=== PATIENT | male | born 1980 | race Caucasian/White ===

== ENCOUNTER 2016-12-07 18:56 | Emergency (ER) | payer SELFPAY ==
[2016-12-07 19:00] VITALS: BP 143/63; PULSE 97; RESP 20; TEMP 98.9
--- NOTE | 2016-12-07 19:07 | ED ---
General Adult HPI - General Chief complaint: Upper Respiratory Infection Stated complaint: COUGH, COLD SYMPTOMS Time Seen by Provider: 12/07/16 19:01 Source: patient, RN notes reviewed Mode of arrival: ambulatory Limitations: no limitations - History of Present Illness Initial comments: Patient 36-year-old male who presents emergency room today with a chief complaint of cough congestion and increased rhinorrhea and sneezing over the last 3 days. He denies any bodyaches. Denies any recorded temperatures. Denies any chills. Denies any nausea vomiting, diarrhea. Patient denies any other complaints or symptoms currently. Patient denies any shortness of breath, chest pain, back pain, abdominal pain, dysuria or hematuria, constipation, headaches or visual changes, or any other complaints. - Related Data Home Medications Medication Instructions Recorded Confirmed Acetaminophen Tab [Tylenol Tab] 1,000 mg PO Q6HR PRN 12/07/16 12/07/16 Previous Rx's Medication Instructions Recorded Amoxicillin/Potassium Clav 1 each PO Q12HR #20 tab 12/07/16 [Augmentin 875-125 Tablet] Fluticasone Propionate [Flonase 1 - 2 spray EA NOSTRIL DAILY 5 Days 12/07/16 Allergy Relief] Allergies Allergy/AdvReac Type Severity Reaction Status Date / Time No Known Allergies Allergy Verified 12/07/16 19:11 Review of Systems ROS Statement: Those systems with pertinent positive or pertinent negative responses have been documented in the HPI. ROS Other: All systems not noted in ROS Statement are negative. Past Medical History Past Medical History: Hypertension, Mitral Valve Prolapse (MVP) History of Any Multi-Drug Resistant Organisms: None Reported Past Surgical History: Hernia Repair, Orthopedic Surgery Past Psychological History: No Psychological Hx Reported Smoking Status: Current every day smoker Past Alcohol Use History: Occasional Past Drug Use History: None Reported General Exam - General Exam Comments Initial Comments: General: The patient is awake and alert, in no distress, and does not appear acutely ill. Eye: Pupils are equal, round and reactive to light, extra-ocular movements are intact. No nystagmus. There is normal conjunctiva bilaterally. No signs of icterus. Ears, nose, mouth and throat: There are moist mucous membranes and no oral lesions. Clear rhinorrhea. Neck: The neck is supple, there is no tenderness or JVD. Cardiovascular: There is a regular rate and rhythm. No murmur, rub or gallop is appreciated. Respiratory: Lungs are clear to auscultation, respirations are non-labored, breath sounds are equal. No wheezes, stridor, rales, or rhonchi. Musculoskeletal: Normal ROM, no tenderness. Strength 5/5. Sensation intact. Pulses equal bilaterally 2+. Neurological: A&O x 3. CN II-XII intact, There are no obvious motor or sensory deficits. Coordination appears grossly intact. Speech is normal. Skin: Skin is warm and dry and no rashes or lesions are noted. Psychiatric: Cooperative, appropriate mood & affect, normal judgment. Limitations: no limitations Course Vital Signs 12/07/16 18:58 Temperature 98.9 F Pulse Rate 97 Respiratory 20 Rate Blood Pressure 143/63 O2 Sat by Pulse 98 Oximetry Medical Decision Making - Medical Decision Making The patient reexamined at this time shows no signs of distress. Chest x-ray negative. Patient will be treated for sinus infection as it is tender over the maxillary sinuses. Does have increased strange advised could be a viral illness. Patient will be started on Flonase as well as advised to use over-the- counter medications of Claritin, Sudafed. Advised return to emergency room if any symptoms increase worsen or for any other concerns. Disposition Clinical Impression: Acute sinusitis Disposition: HOME SELF-CARE Condition: Good Instructions: Sinusitis (ED) Additional Instructions: Please use medication as discussed. Please follow-up with family doctor in the next 2 days of symptoms have not improved. Please return to emergency room if the symptoms increase or worsen or for any other concerns. Prescriptions: Amoxicillin/Potassium Clav [Augmentin 875-125 Tablet] 1 each PO Q12HR #20 tab Fluticasone Propionate [Flonase Allergy Relief] 1 - 2 spray EA NOSTRIL DAILY 5 Days Time of Disposition: 19:46
--- NOTE | 2016-12-07 19:27 | XR ---
EXAMINATION TYPE: XR chest 2V DATE OF EXAM: 12/07/2016 7:20 PM COMPARISON: 08/10/2015 HISTORY: Cough and congestion TECHNIQUE: Frontal and lateral views of the chest are obtained. FINDINGS: Heart and mediastinum are normal. Lungs are clear. Diaphragm is normal. Bony thorax is int act. IMPRESSION: Normal chest. No change.
== END 2016-12-07 20:18 | disposition home or self-care (01) ==
LOC: EC 18:56
DX: J01.90 Acute sinusitis, unspecified (principal); F17.200 Nicotine dependence, unspecified, uncomplicated
CPT/HCPCS: 71020; 99283

== ENCOUNTER 2017-05-21 14:15 | Emergency (ER) | payer OTHER ==
[2017-05-21 14:37] VITALS: BP 134/96; PULSE 103; RESP 18; TEMP 97.5
--- NOTE | 2017-05-21 15:07 | ED ---
ENT HPI - General Chief complaint: Dental/Oral Stated complaint: Dental Pain Time Seen by Provider: 05/21/17 14:38 Source: patient Mode of arrival: ambulatory Limitations: no limitations - History of Present Illness Initial comments: 36-year-old male patient presents to emergency for evaluation of left lower dental pain with left-sided facial swelling. Patient states that this has been bothering him for the last 3 days however the swelling in his face started today. Patient states he has been calling around to get a dentist appointment but no one has any emergency appointments available for today. Patient states that the pain is becoming unbearable and the swelling is worsening throughout the day. Patient reports multiple broken teeth and cavities, states they've been that way for a while. Patient denies any difficulty swallowing or opening his mouth. Patient denies any recent fever, chills, shortness breath, chest pain, abdominal pain, nausea/vomiting/diarrhea, back pain, numbness, tingling, hematuria, headache, or visual changes, or any other complaints. - Related Data Previous Rx's Medication Instructions Recorded Amoxic-Pot Clav 875-125Mg 1 tab PO Q12HR #20 tablet 05/21/17 [Augmentin 875-125] Hydrocodone/Acetaminophen [[place] 1 tab PO Q6HR PRN #15 tab 05/21/17 5-325] Allergies Allergy/AdvReac Type Severity Reaction Status Date / Time No Known Allergies Allergy Verified 05/21/17 15:04 Review of Systems ROS Statement: Those systems with pertinent positive or pertinent negative responses have been documented in the HPI. ROS Other: All systems not noted in ROS Statement are negative. Past Medical History Past Medical History: Hypertension, Mitral Valve Prolapse (MVP) History of Any Multi-Drug Resistant Organisms: None Reported Past Surgical History: Hernia Repair, Orthopedic Surgery Past Psychological History: No Psychological Hx Reported Smoking Status: Current every day smoker Past Alcohol Use History: Occasional Past Drug Use History: None Reported General Exam Limitations: no limitations General appearance: alert, in no apparent distress Eye exam: Present: normal appearance, PERRL, EOMI. Absent: scleral icterus, conjunctival injection, periorbital swelling ENT exam: Present: normal exam, normal oropharynx, mucous membranes moist, other (Left-sided facial swelling, left lower dentition reveals multiple broken teeth at the gumline, multiple dental caries. No evidence of drainable abscess , surrounding gingival erythema and swelling.) Neck exam: Present: normal inspection, full ROM. Absent: tenderness, meningismus, lymphadenopathy Respiratory exam: Present: normal lung sounds bilaterally. Absent: respiratory distress, wheezes, rales, rhonchi, stridor Cardiovascular Exam: Present: regular rate, normal rhythm, normal heart sounds. Absent: systolic murmur, diastolic murmur, rubs, gallop, clicks Neurological exam: Present: alert, oriented X3, CN II-XII intact Psychiatric exam: Present: normal affect, normal mood Skin exam: Present: warm, dry, intact, normal color. Absent: rash Course Vital Signs 05/21/17 14:36 Temperature 97.5 F L Pulse Rate 103 H Respiratory 18 Rate Blood Pressure 134/96 O2 Sat by Pulse 98 Oximetry Medical Decision Making - Medical Decision Making 36-year-old male patient presented to emergency [facility] today for evaluation of left lower dental pain and facial swelling. Physical exam did reveal multiple broken teeth and dental caries. There is no evidence of drainable abscess. Patient will be given a injection of penicillin here prior to discharge. He will discharged home with a prescription for Augmentin. Instructed to follow- up with a dentist as soon as possible. Instructed to take pain medications as directed. Instructed to return immediately for any new, worsening, or concerning symptoms. Instructed to follow-up with his primary care physician as well for recheck in 1-2 days. Patient verbalized understanding and agreed with this plan. Disposition Clinical Impression: Dental abscess Disposition: HOME SELF-CARE Condition: Good Instructions: Dental Abscess (ED), Dental Caries (ED), Toothache (ED) Additional Instructions: Follow-up with dentist as soon as possible. Take medications as directed. Complete antibiotic prescription in full. Return immediately for any new, worsening, or concerning symptoms. Prescriptions: Amoxic-Pot Clav 875-125Mg [Augmentin 875-125] 1 tab PO Q12HR #20 tablet Hydrocodone/Acetaminophen [[place] 5-325] 1 tab PO Q6HR PRN #15 tab PRN Reason: Pain Referrals: Renita Reyes MD [Primary Care Provider] - 1-2 days Time of Disposition: 15:07
[2017-05-21] MEDS ORDERED: PENICILLIN G BENZATHINE 1,200,000 UNIT/2 ML SYRINGE IM STA (15:10)
== END 2017-05-21 15:30 | disposition home or self-care (01) ==
LOC: EC 14:15
DX: K04.7 Periapical abscess without sinus (principal); F17.200 Nicotine dependence, unspecified, uncomplicated
CPT/HCPCS: 99282; 96372; J0561

== ENCOUNTER 2017-08-27 16:14 | Emergency (ER) | payer OTHER ==
[2017-08-27] MEDS ORDERED: SODIUM CHLORIDE 0.9% 500 ML IV STA (18:21)
[2017-08-27 19:00] LABS: Appearance,Urine Clear (Clear); Bilirubin,Urine Negative (Negative); Glucose,Urine (UA) Negative (Negative); Ketones,Urine Negative (Negative); Leukocyte Esterase,Urine Negative (Negative); Nitrite,Urine Negative (Negative); Protein,Urine Negative (Negative); UA Billing (MACRO vs. MICRO) CHEM; Urobilinogen,Urine <2.0 mg/dL (<2.0)
[2017-08-27 19:02] LABS: Basophils # (A) 0.1 k/uL (0-0.2); Basophils % (A) 1 %; CH 32.9; CHCM 34.3; Eosinophils # (A) 0.2 k/uL (0-0.7); Eosinophils % (A) 2 %; HCT 51.4 % (39.0-53.0); HDW 2.22; HGB 16.8 gm/dL (13.0-17.5); Luc # (Auto) 0.28; Luc % (Auto) 3; Lymphocytes # (A) 3.1 k/uL (1.0-4.8); Lymphocytes % (A) 32 %; MCH 31.4 pg (25.0-35.0); MCHC 32.6 g/dL (31.0-37.0); MCV 96.4 fL (80.0-100.0); Mean Platelet Volume 8.9; Monocytes # (A) 0.6 k/uL (0-1.0); Monocytes % (A) 6 %; Neutrophils # (A) 5.5 k/uL (1.3-7.7); Neutrophils % (A) 56 %; RBC 5.33 m/uL (4.30-5.90); RDW 14.3 % (11.5-15.5); WBC 9.9 k/uL (3.8-10.6)
[2017-08-27] MEDS ORDERED: MORPHINE SULFATE 2 MG/ML SYRINGE IVP ONE (19:07)
[2017-08-27] MEDS ORDERED: ONDANSETRON 4 MG/2 ML VIAL IVP STA (19:07)
[2017-08-27] MEDS ORDERED: PANTOPRAZOLE 40 MG/10 ML VIAL IVP STA (19:08)
[2017-08-27 19:10] LABS: ALT 58 U/L (21-72); AST 35 U/L (17-59); Alkaline Phosphatase 67 U/L (38-126); Amylase 65 U/L (30-110); Anion Gap 9 mmol/L; Blood Urea Nitrogen 18 mg/dL (9-20); Calcium 9.7 mg/dL (8.4-10.2); Carbon Dioxide 21 mmol/L (22-30); Chloride 107 mmol/L (98-107); Glucose 84 mg/dL (74-99); Non-African American GFR(MDRD) >60 (>60 ml/min/1.73 sqM); Potassium 4.4 mmol/L (3.5-5.1); Sodium 137 mmol/L (137-145); Total Bilirubin 0.8 mg/dL (0.2-1.3); Total Protein 7.8 g/dL (6.3-8.2)
--- NOTE | 2017-08-27 19:27 | XR ---
EXAMINATION TYPE: XR KUB DATE OF EXAM: 08/27/2017 COMPARISON: 12/21/2011 HISTORY: Abdominal pain TECHNIQUE: 2 views FINDINGS: There is no sign of intestinal obstruction or pneumoperitoneum. Fecal pattern is normal. Th ere is no evidence of a mass. There are no pathologic calcifications over the kidneys. IMPRESSION: Nonacute abdomen. No change.
[2017-08-27 19:30] VITALS: RESP 18
--- NOTE | 2017-08-27 19:30 | ED ---
Abdominal Pain HPI - General Chief Complaint: Abdominal Pain Stated Complaint: Abd Pain Time Seen by Provider: 08/27/17 18:21 Source: patient, RN notes reviewed Mode of arrival: ambulatory Limitations: no limitations - History of Present Illness Initial Comments: 36-year-old male present emergency Department chief complaint, blood in stool in the focal abdominal pain. Patient states it started a few days ago. Patient states that the pain is intermittent there is no constant pain. He states that he's had a few bowel movements daily this in the blood initially with a states stops. Patient denies any headache, dizziness, chest pain, shortness breath, nausea vomiting. Patient states that he has had a colonoscopy in the past with no specific findings. Patient states he also had an EGD which showed peptic ulcer disease. He states at that time he was on and antacids but states is not any current medications. - Related Data Previous Rx's Medication Instructions Recorded Ciprofloxacin HCl [Cipro] 500 mg PO Q12HR #20 tablet 08/27/17 metroNIDAZOLE [Flagyl] 500 mg PO TID #30 tab 08/27/17 Allergies Allergy/AdvReac Type Severity Reaction Status Date / Time No Known Allergies Allergy Verified 08/27/17 18:33 Review of Systems ROS Statement: Those systems with pertinent positive or pertinent negative responses have been documented in the HPI. ROS Other: All systems not noted in ROS Statement are negative. Past Medical History Past Medical History: GERD/Reflux, Hypertension, Mitral Valve Prolapse (MVP) History of Any Multi-Drug Resistant Organisms: None Reported Past Surgical History: Hernia Repair, Orthopedic Surgery Past Psychological History: No Psychological Hx Reported Smoking Status: Current every day smoker Past Alcohol Use History: Occasional Past Drug Use History: None Reported General Exam Limitations: no limitations General appearance: alert, in no apparent distress Head exam: Present: atraumatic, normocephalic, normal inspection Respiratory exam: Present: normal lung sounds bilaterally. Absent: respiratory distress, wheezes, rales, rhonchi, stridor Cardiovascular Exam: Present: regular rate, normal rhythm, normal heart sounds. Absent: systolic murmur, diastolic murmur, rubs, gallop, clicks GI/Abdominal exam: Present: soft, tenderness (Minimal left lower quadrant tenderness), normal bowel sounds. Absent: distended, guarding, rebound, rigid Back exam: Absent: CVA tenderness (R), CVA tenderness (L) Skin exam: Present: warm, dry, intact, normal color. Absent: rash Course Vital Signs 08/27/17 08/27/17 16:35 19:29 Temperature 99 F Pulse Rate 102 H 84 Respiratory 20 18 Rate Blood Pressure 136/78 124/77 O2 Sat by Pulse 98 96 Oximetry Medical Decision Making - Medical Decision Making 36-year-old male present emergency from for upper quadrant abdominal pain. Patient states that he's had some bloody bowel movements. Patient is Hemoccult- negative at this time. Patient's laboratory is unremarkable. Patient may have some underlying colitis. Patient will be followed up with on-call surgery and return for any worsening symptoms. - Lab Data Result diagrams: 08/27/17 18:46 08/27/17 18:46 Lab Results 08/27/17 08/27/17 08/27/17 Range/Units 18:46 18:46 18:46 WBC 9.9 (3.8-10.6) k/uL RBC 5.33 (4.30-5.90) m/uL Hgb 16.8 (13.0-17.5) gm/dL Hct 51.4 (39.0-53.0) % MCV 96.4 (80.0-100.0) fL MCH 31.4 (25.0-35.0) pg MCHC 32.6 (31.0-37.0) g/dL RDW 14.3 (11.5-15.5) % Plt Count 234 (150-450) k/uL Neutrophils % 56 % Lymphocytes % 32 % Monocytes % 6 % Eosinophils % 2 % Basophils % 1 % Neutrophils # 5.5 (1.3-7.7) k/uL Lymphocytes # 3.1 (1.0-4.8) k/uL Monocytes # 0.6 (0-1.0) k/uL Eosinophils # 0.2 (0-0.7) k/uL Basophils # 0.1 (0-0.2) k/uL PT 10.4 (9.0-12.0) sec INR 1.0 (<1.2) Sodium 137 (137-145) mmol/L Potassium 4.4 (3.5-5.1) mmol/L Chloride 107 (98-107) mmol/L Carbon Dioxide 21 L (22-30) mmol/L Anion Gap 9 mmol/L BUN 18 (9-20) mg/dL Creatinine 0.90 (0.66-1.25) mg/dL Est GFR (MDRD) Af Amer >60 (>60 ml/min/1.73 sqM) Est GFR (MDRD) Non-Af >60 (>60 ml/min/1.73 sqM) Glucose 84 (74-99) mg/dL Plasma Lactic Acid Wild (0.7-2.0) mmol/L Calcium 9.7 (8.4-10.2) mg/dL Total Bilirubin 0.8 (0.2-1.3) mg/dL AST 35 (17-59) U/L ALT 58 (21-72) U/L Alkaline Phosphatase 67 (38-126) U/L Total Protein 7.8 (6.3-8.2) g/dL Albumin 4.5 (3.5-5.0) g/dL Amylase 65 (30-110) U/L Lipase 31 (23-300) U/L Urine Color Urine Appearance (Clear) Urine pH (5.0-8.0) Ur Specific [place] (1.001-1.035) Urine Protein (Negative) Urine Glucose (UA) (Negative) Urine Ketones (Negative) Urine Blood (Negative) Urine Nitrite (Negative) Urine Bilirubin (Negative) Urine Urobilinogen (<2.0) mg/dL Ur Leukocyte Esterase (Negative) Stool Occult Blood (Negative) 08/27/17 08/27/17 08/27/17 Range/Units 18:46 18:55 19:43 WBC (3.8-10.6) k/uL RBC (4.30-5.90) m/uL Hgb (13.0-17.5) gm/dL Hct (39.0-53.0) % MCV (80.0-100.0) fL MCH (25.0-35.0) pg MCHC (31.0-37.0) g/dL RDW (11.5-15.5) % Plt Count (150-450) k/uL Neutrophils % % Lymphocytes % % Monocytes % % Eosinophils % % Basophils % % Neutrophils # (1.3-7.7) k/uL Lymphocytes # (1.0-4.8) k/uL Monocytes # (0-1.0) k/uL Eosinophils # (0-0.7) k/uL Basophils # (0-0.2) k/uL PT (9.0-12.0) sec INR (<1.2) Sodium (137-145) mmol/L Potassium (3.5-5.1) mmol/L Chloride (98-107) mmol/L Carbon Dioxide (22-30) mmol/L Anion Gap mmol/L BUN (9-20) mg/dL Creatinine (0.66-1.25) mg/dL Est GFR (MDRD) Af Amer (>60 ml/min/1.73 sqM) Est GFR (MDRD) Non-Af (>60 ml/min/1.73 sqM) Glucose (74-99) mg/dL Plasma Lactic Acid Wild 1.0 (0.7-2.0) mmol/L Calcium (8.4-10.2) mg/dL Total Bilirubin (0.2-1.3) mg/dL AST (17-59) U/L ALT (21-72) U/L Alkaline Phosphatase (38-126) U/L Total Protein (6.3-8.2) g/dL Albumin (3.5-5.0) g/dL Amylase (30-110) U/L Lipase (23-300) U/L Urine Color Yellow Urine Appearance Clear (Clear) Urine pH 6.0 (5.0-8.0) Ur Specific [place] 1.020 (1.001-1.035) Urine Protein Negative (Negative) Urine Glucose (UA) Negative (Negative) Urine Ketones Negative (Negative) Urine Blood Negative (Negative) Urine Nitrite Negative (Negative) Urine Bilirubin Negative (Negative) Urine Urobilinogen <2.0 (<2.0) mg/dL Ur Leukocyte Esterase Negative (Negative) Stool Occult Blood Negative (Negative) Disposition Clinical Impression: Colitis, Rectal bleeding Disposition: HOME SELF-CARE Condition: Stable Instructions: Colitis (ED) Additional Instructions: Please return to the Emergency Department if symptoms worsen or any other concerns. Prescriptions: Ciprofloxacin HCl [Cipro] 500 mg PO Q12HR #20 tablet metroNIDAZOLE [Flagyl] 500 mg PO TID #30 tab Referrals: Renita Reyes MD [Primary Care Provider] - 1-2 days Umesh Fields MD [STAFF PHYSICIAN] - 1-2 days Time of Disposition: 20:07
[2017-08-27 19:51] LABS: Prothrombin Time 10.4 sec (9.0-12.0)
[2017-08-27] MEDS ORDERED: CIPROFLOXACIN HCL 500 MG TAB PO STA (20:07)
[2017-08-27] MEDS ORDERED: metroNIDAZOLE 500 MG TAB PO STA (20:07)
[2017-08-27 20:24] VITALS: BP 111/71; PULSE 76; TEMP 97.1
== END 2017-08-27 20:23 | disposition home or self-care (01) ==
LOC: EC 16:14
DX: K52.9 Noninfective gastroenteritis and colitis, unspecified (principal); F17.200 Nicotine dependence, unspecified, uncomplicated
CPT/HCPCS: 99284; 96374; 96375 ×2; 96361; 36415; 80053; 82150; 83605; 83690; 85025; 85610; 82272; 81003; 74000; J2405; J2270; C9113

== ENCOUNTER 2017-12-06 14:12 | Observation (INO) | payer BC, OTHER ==
[2017-12-06] MEDS ORDERED: NITROGLYCERIN SL TABS 0.4 MG TAB SUBLINGUAL STA (14:18)
--- NOTE | 2017-12-06 14:23 | ED ---
Chest Pain HPI - General Stated Complaint: CHEST PAIN Time Seen by Provider: 12/06/17 14:12 Source: patient, EMS, RN notes reviewed Mode of arrival: EMS - History of Present Illness Initial Comments: This is a 36-year-old male with a benign past medical history is strong family history of heart disease he had a dad his first heart attack at the age of 28 and a mother who had heart disease who first had in her 40s who states for last one half weeks she's had intermittent episodes of left-sided chest pain tightness and pressure in nature to radiates to his left arm and up to his neck and jaw area. He states his happened with exertion. He had an episode last night at work where he had another episode when he was lifting. Usually gets better with rest. Today had a recurrent episode of the pain with some nausea. He states it was 5/10 initially now is down to about a 2 he saw his doctor today he was given 324 mg of aspirin was given Zofran by paramedics the EKG submitted by EMS shows no definite acute changes at this time. Patient does admit to being a smoker of at least a pack a day. MD Complaint: chest pain - Related Data Home Medications Medication Instructions Recorded Confirmed No Known Home Medications [No 12/06/17 12/06/17 Known Home Medications] Allergies Allergy/AdvReac Type Severity Reaction Status Date / Time No Known Allergies Allergy Verified 12/06/17 14:49 Review of Systems ROS Statement: Those systems with pertinent positive or pertinent negative responses have been documented in the HPI. ROS Other: All systems not noted in ROS Statement are negative. EKG Findings - EKG Results: EKG: interpreted by JULIANA, sinus rhythm (Sinus rhythm rate of 87. Interval 140 QRS duration 86 daily since QTC of 346/[address]-T wave changes.) Past Medical History Past Medical History: GERD/Reflux, Hypertension, Mitral Valve Prolapse (MVP) History of Any Multi-Drug Resistant Organisms: None Reported Past Surgical History: Hernia Repair, Orthopedic Surgery Past Psychological History: No Psychological Hx Reported Smoking Status: Current every day smoker Past Alcohol Use History: Occasional Past Drug Use History: None Reported General Exam - General Exam Comments Initial Comments: This is a well-developed well-nourished awake alert oriented 3 male General appearance: alert, anxious Head exam: Present: atraumatic, normocephalic, normal inspection Eye exam: Present: normal appearance, PERRL, EOMI. Absent: scleral icterus, conjunctival injection, periorbital swelling ENT exam: Present: normal exam, mucous membranes moist Neck exam: Present: normal inspection. Absent: tenderness, meningismus, lymphadenopathy Respiratory exam: Present: normal lung sounds bilaterally. Absent: respiratory distress, wheezes, rales, rhonchi, stridor Cardiovascular Exam: Present: regular rate, normal rhythm, normal heart sounds. Absent: systolic murmur, diastolic murmur, rubs, gallop, clicks GI/Abdominal exam: Present: soft, normal bowel sounds. Absent: distended, tenderness, guarding, rebound, rigid Extremities exam: Present: normal inspection, full ROM, normal capillary refill. Absent: tenderness, pedal edema, joint swelling, calf tenderness Back exam: Present: normal inspection Neurological exam: Present: alert, oriented X3, CN II-XII intact Psychiatric exam: Present: normal affect, normal mood Skin exam: Present: warm, dry, intact, normal color. Absent: rash Course Vital Signs 12/06/17 12/06/17 12/06/17 14:22 15:09 15:20 Temperature 98.7 F 97.3 F L Pulse Rate 81 71 Pulse Rate [ 75 Supervisor Insulation ] Respiratory 18 18 Rate Blood Pressure 137/86 111/67 O2 Sat by Pulse 96 97 Oximetry - Reevaluation(s) Reevaluation #1: 12/06/17 15:32 Reevaluation patient reveals the pain is improved after nitroglycerin. Chest Pain MDM - MDM I did review the imaging and reports no acute findings. I did discuss the findings with the patient is presentation is consistent with unstable angina. He will be admitted with consultation by cardiology at did discuss the case with Dr. Dunn. Critical Care Time Critical Care Time: Yes Critical Care Time: 31 minutes of critical care time which includes initial presentation with history physical labs x-rays also included reevaluation the patient also includes monitoring the EMS run and discussed with paramedics upon arrival. Discussed with the admitting physician admission orders and documentation of the above. Disposition Clinical Impression: Unstable angina pectoris, Chest pain Disposition: ADMITTED IP TO THIS [facility] Condition: Stable Referrals: Renita Reyes MD [Primary Care Provider] - 1-2 days
[2017-12-06 14:35] LABS: Basophils # (A) 0.1 k/uL (0-0.2); Basophils % (A) 1 %; Eosinophils # (A) 0.2 k/uL (0-0.7); Eosinophils % (A) 2 %; HCT 46.4 % (39.0-53.0); HGB 15.7 gm/dL (13.0-17.5); Lymphocytes # (A) 2.1 k/uL (1.0-4.8); Lymphocytes % (A) 26 %; MCH 31.1 pg (25.0-35.0); MCHC 33.9 g/dL (31.0-37.0); Mean Platelet Volume 8.7; Monocytes # (A) 0.6 k/uL (0-1.0); Monocytes % (A) 7 %; Neutrophils # (A) 5.1 k/uL (1.3-7.7); Neutrophils % (A) 63 %; Platelet Count 215 k/uL (150-450); RBC 5.05 m/uL (4.30-5.90); RDW 12.9 % (11.5-15.5); WBC 8.2 k/uL (3.8-10.6)
[2017-12-06 14:44] LABS: ALT 71 U/L (21-72); AST 44 U/L (17-59); Alkaline Phosphatase 70 U/L (38-126); Anion Gap 9 mmol/L; Blood Urea Nitrogen 19 mg/dL (9-20); Calcium 9.3 mg/dL (8.4-10.2); Carbon Dioxide 23 mmol/L (22-30); Chloride 107 mmol/L (98-107); Glucose 102 mg/dL (74-99); Magnesium 2.2 mg/dL (1.6-2.3); Potassium 4.6 mmol/L (3.5-5.1); Sodium 139 mmol/L (137-145); Total Bilirubin 0.5 mg/dL (0.2-1.3); Total Protein 6.9 g/dL (6.3-8.2)
[2017-12-06 14:56] LABS: Creatine Kinase 127 U/L (55-170); D-Dimer <0.17 mg/L FEU (<0.60); Partial Thromboplastin Time 25.7 sec (22.0-30.0); Prothrombin Time 9.7 sec (9.0-12.0)
[2017-12-06 15:10] LABS: Creatine Kinase MB 0.7 ng/mL (0.0-2.4); Troponin I <0.012 ng/mL (0.000-0.034)
--- NOTE | 2017-12-06 15:20 | XR ---
EXAMINATION TYPE: XR chest 2V DATE OF EXAM: 12/06/2017 COMPARISON: 12/17/2016 INDICATION: Chest pain neck pain TECHNIQUE: Frontal and lateral views of the chest are obtained. FINDINGS: The heart size is normal. The pulmonary vasculature is normal. The lungs are clear. IMPRESSION: 1. No acute pulmonary process.
[2017-12-06] MEDS ORDERED: HEPARIN SODIUM,PORCINE 5,000 UNIT/ML 1 ML VIAL IV ONE (15:26)
[2017-12-06] MEDS ORDERED: NITROGLYCERIN SL TABS 0.4 MG TAB SUBLINGUAL PRN (15:26)
[2017-12-06] MEDS ORDERED: NICOTINE 21MG/24HR PATCH TRANSDERM STA (15:29)
[2017-12-06] MEDS ORDERED: HEPARIN SOD,PORK IN 0.45% NACL 25,000 UNIT in 0.45% NACL 1 500ML.BAG IV SCH (15:30)
[2017-12-06] MEDS: SODIUM CHLORIDE 0.9% 1,000 ML IV SCH (15:59)
[2017-12-06] MEDS ORDERED: ALPRAZolam 0.25 MG TAB PO PRN (16:52)
[2017-12-06] MEDS ORDERED: MENTHOL (NICE) LOZENGE MUCOUS MEM PRN (18:33)
--- NOTE | 2017-12-06 18:50 | HP ---
HISTORY AND PHYSICAL DATE OF SERVICE: 12/06/2017. CHIEF COMPLAINT: Chest pain. HISTORY OF PRESENT ILLNESS: This 37-year-old gentleman with a past medical history of history of GERD, hypertension, mitral valve collapse, history of DJD, being followed by Dr. Reyes in the outpatient setting, is complaining of chest pain. The patient apparently works in Oncology. The patient apparently has a significant family history of heart disease in mother and father at young ages. The patient has had intermittent episodes of left- sided chest pain, which is crushing in type, for the last several days. The pain is also radiating to the jaw as well as upper arm. The patient came to [facility] and was admitted for further evaluation and treatment. The patient apparently had a stress test and cardiac cath several years ago. Otherwise there is no history of fevers or rigors. No headache, loss of consciousness or seizures at this time. PAST MEDICAL HISTORY: History of GERD, hypertension, mitral valve prolapse, history of hernia repair. MEDICATIONS PRIOR TO ADMISSION: Home medications are none. ALLERGIES: None. FAMILY HISTORY: History of extensive coronary artery disease as mentioned earlier. SOCIAL HISTORY: History of smoking. No history of alcohol intake. REVIEW OF SYSTEMS: ENT: No diminished hearing or vision. CARDIOVASCULAR: As mentioned. CHEST: As mentioned. GI: No nausea. : No dysuria. NERVOUS SYSTEM: No numbness or weakness. ALLERGY/IMMUNOLOGY: No asthma. MUSCULOSKELETAL: As mentioned. HEMATOLOGY: No anemia. ENDOCRINE: No history of diabetes. CONSTITUTIONAL: As mentioned. DERMATOLOGY: Negative. RHEUMATOLOGY: Negative. PSYCHIATRY: As mentioned. PHYSICAL EXAMINATION: Alert, oriented x3. Pulse 75, blood pressure 130/72, respirations 16, temperature 97.5, pulse ox 97% on 2 L. HEENT: Conjunctivae normal. Oral mucosa moist. NECK: No jugular venous distention. No lymph node enlargement. CARDIOVASCULAR: S1 and S2. RESPIRATORY: Breath sounds diminished in the bases. No rhonchi. No crackles. ABDOMEN: Soft, obese, nontender. No mass palpable. LEGS: No edema, no swelling. NERVOUS SYSTEM: Higher functions as mentioned earlier, moves all 4 limbs, no focal motor deficits. LYMPHATICS: No lymph nodes palpable in the neck or axillae. SKIN: No rashes or ulcers. LABS: At this time show CBC within normal limits. Glucose 102. ASSESSMENT: 1. Chest pain, left-sided, rule out coronary artery disease. 2. Family history of coronary artery disease. 3. Hypertension. 4. History of mitral valve prolapse. 5. History of gastroesophageal reflux disease. 6. History of hernia repair. 7. History of nicotine dependence, ongoing. RECOMMENDATIONS: In this 37-year-old gentleman who presented with multiple complex medical issues, we will monitor the patient closely, continue the current management and symptomatic treatment. Heparin protocol. Unstable angina protocol. Cardiology consultation. He will be n.p.o. after midnight. The patient will require further evaluation to rule out the possibility of any coronary artery disease. Otherwise we will follow the patient closely. Recommend close follow up with Dr. Reyes in the outpatient setting. Further recommendations to follow. Symptomatic treatment of pain also will be offered as well. MMODL / IJN: [id number] /
[2017-12-06 19:18] VITALS: RESP 16
[2017-12-06] MEDS: NITROGLYCERIN OINT 1 INCH/GM PACKET TOPICAL SCH ×2 (19:39→23:49)
[2017-12-06] MEDS: HYDROcodone/APAP 5-325MG 1 EACH TAB PO PRN (19:53)
[2017-12-06] MEDS ORDERED: TEMAZEPAM 15 MG CAP PO PRN (21:00)
[2017-12-06 22:07] LABS: Creatine Kinase 100 U/L (55-170)
[2017-12-06 22:21] LABS: Creatine Kinase MB 0.6 ng/mL (0.0-2.4); Troponin I <0.012 ng/mL (0.000-0.034)
[2017-12-06] MEDS: guaiFENesin SYRUP 100MG/5ML 200 MG/10 ML CUP PO PRN (22:39)
[2017-12-07] MEDS: HYDROcodone/APAP 5-325MG 1 EACH TAB PO PRN (03:16)
[2017-12-07 04:08] LABS: Basophils # (A) 0.1 k/uL (0-0.2); Basophils % (A) 1 %; Eosinophils # (A) 0.2 k/uL (0-0.7); Eosinophils % (A) 3 %; HCT 44.9 % (39.0-53.0); HGB 15.2 gm/dL (13.0-17.5); Lymphocytes # (A) 2.7 k/uL (1.0-4.8); Lymphocytes % (A) 31 %; MCH 31.4 pg (25.0-35.0); MCHC 33.9 g/dL (31.0-37.0); MCV 92.8 fL (80.0-100.0); Mean Platelet Volume 8.5; Monocytes # (A) 0.6 k/uL (0-1.0); Monocytes % (A) 6 %; Neutrophils % (A) 58 %; Platelet Count 210 k/uL (150-450); RBC 4.84 m/uL (4.30-5.90); WBC 8.7 k/uL (3.8-10.6)
[2017-12-07 04:21] LABS: Anion Gap 8 mmol/L; Blood Urea Nitrogen 19 mg/dL (9-20); Carbon Dioxide 24 mmol/L (22-30); Chloride 105 mmol/L (98-107); Cholesterol 205 mg/dL (<200); Glucose 96 mg/dL (74-99); HDL Cholesterol 40 mg/dL (40-60); LDL Cholesterol,Calculated 122 mg/dL (0-99); Potassium 4.4 mmol/L (3.5-5.1); Sodium 137 mmol/L (137-145); Triglycerides 214 mg/dL (<150)
[2017-12-07] MEDS: NITROGLYCERIN OINT 1 INCH/GM PACKET TOPICAL SCH ×2 (04:21→11:37)
[2017-12-07 04:38] LABS: Creatine Kinase 89 U/L (55-170)
[2017-12-07 04:49] LABS: Creatine Kinase MB 0.5 ng/mL (0.0-2.4); Troponin I <0.012 ng/mL (0.000-0.034)
[2017-12-07] MEDS ORDERED: PANTOPRAZOLE 40 MG TABLET PO SCH (07:30)
[2017-12-07 07:38] VITALS: BP 111/76; PULSE 74; TEMP 97.5
[2017-12-07] MEDS ORDERED: ASPIRIN 81 MG PO SCH (09:00)
[2017-12-07] MEDS ORDERED: ASPIRIN 325 MG TAB PO SCH (09:00)
[2017-12-07] MEDS: guaiFENesin SYRUP 100MG/5ML 200 MG/10 ML CUP PO PRN (12:18)
[2017-12-07] MEDS: SODIUM CHLORIDE 0.9% 1,000 ML IV SCH (16:17)
--- NOTE | 2017-12-07 18:23 | P.STRESS ---
- Stress Test Note Stress Test Results/Findings: Exam Performed: stress echo exercise Exam Date: 12/07/17 Reason for Exam: chest pain Height: 6 ft Weight: 116.6 kg Protocol: kim Stage: 3 Duration of Exercise: 8:00 Resting Heart Rate: 87 Resting Blood Pressure: 107/65 Maximum Achieved Heart Rate: 155 Maximum Achieved Blood Pressure: 155/65 85% PMHR: 154 100% PMHR: 181 METS: 9.1 Technologist Comment: Stress Test Results/Findings: This 37-year-old gentleman is admitted to the hospital with complaints of chest pain and shortness of breath. Patient has history of hypertension and hypercholesteremia, and also smoking history. Be baseline EKG showed sinus rhythm with normal CT interval and QRS duration. Patient walked on the Kim protocol for 8 minutes achieving a maximal heart rate of 155 with a blood pressure 153/43. EKG taken during and after the exercise did not reveal any changes to suggest ischemic. Final impression #1. Negative stress test #2. Negative stress echo
--- NOTE | 2017-12-10 13:12 | ECHOS ---
Referral Reason:cp MEASUREMENTS -------- HEIGHT: 182.9 cm WEIGHT: 116.6 kg BP: 111/76 RVIDd: 2.8 cm (< 3.3) IVSd: 1.6 cm (0.6 - 1.1) LVIDd: 3.0 cm (3.9 - 5.3) LVPWd: 1.6 cm (0.6 - 1.1) IVSs: 1.7 cm LVIDs: 2.5 cm LVPWs: 1.9 cm LA Diam: 3.4 cm (2.7 - 3.8) LAESV Index (A-L): 21.96 ml/m Ao Diam: 3.3 cm (2.0 - 3.7) AV Cusp: 2.4 cm (1.5 - 2.6) EPSS: 0.4 cm MV E Morris: 0.88 m/s MV DecT: 173 ms MV A Morris: 0.60 m/s MV E/A Ratio: 1.46 MV EF SLOPE: 86.45 mm/s (70 - 150) MV EXCURSION: 1.14 cm (> 18.000) FINDINGS -------- Sinus rhythm. This was a technically good study. The left ventricular size is normal. There is moderate concentric left ventricular hypertrophy. O verall left ventricular systolic function is normal with, an EF between 60 - 65 %. The right ventricle is normal in size. Normal LA size by volume 22+/-6 ml/m2. The right atrium is normal in size. Aortic valve is trileaflet and is mildly thickened. Mild mitral regurgitation is present. The tricuspid valve appears structurally normal. The pulmonic valve was not well visualized. The aortic root size is normal. Normal inferior vena cava with normal inspiratory collapse consistent with estimated right atrial pre ssure of 5 mmHg. There is no pericardial effusion. CONCLUSIONS -------- 1. Sinus rhythm. 2. This was a technically good study. 3. The left ventricular size is normal. 4. There is moderate concentric left ventricular hypertrophy. 5. Overall left ventricular systolic function is normal with, an EF between 60 - 65 %. 6. The right ventricle is normal in size. 7. Normal LA size by volume 22+/-6 ml/m2. 8. The right atrium is normal in size. 9. Aortic valve is trileaflet and is mildly thickened. 10. Mild mitral regurgitation is present. 11. The tricuspid valve appears structurally normal. 12. The pulmonic valve was not well visualized. 13. The aortic root size is normal. 14. Normal inferior vena cava with normal inspiratory collapse consistent with estimated right atrial pressure of 5 mmHg. 15. There is no pericardial effusion. AUTO ADJUDICATION SPECIALIST: CONCHIS Hernandez
--- NOTE | 2017-12-11 13:08 | ECHOF ---
Referral Reason:cp MEASUREMENTS -------- HEIGHT: 182.9 cm WEIGHT: 116.6 kg BP: 111/76 RVIDd: 2.8 cm (< 3.3) IVSd: 1.6 cm (0.6 - 1.1) LVIDd: 3.0 cm (3.9 - 5.3) LVPWd: 1.6 cm (0.6 - 1.1) IVSs: 1.7 cm LVIDs: 2.5 cm LVPWs: 1.9 cm LA Diam: 3.4 cm (2.7 - 3.8) LAESV Index (A-L): 21.96 ml/m Ao Diam: 3.3 cm (2.0 - 3.7) AV Cusp: 2.4 cm (1.5 - 2.6) EPSS: 0.4 cm MV E Morris: 0.88 m/s MV DecT: 173 ms MV A Morris: 0.60 m/s MV E/A Ratio: 1.46 MV EF SLOPE: 86.45 mm/s (70 - 150) MV EXCURSION: 1.14 cm (> 18.000) FINDINGS -------- Sinus rhythm. This was a technically good study. The left ventricular size is normal. There is moderate concentric left ventricular hypertrophy. Overall left ventricular systolic function is normal with, an EF between 60 - 65 %. The right ventricle is normal in size. Normal LA size by volume 22+/-6 ml/m2. The right atrium is normal in size. Aortic valve is trileaflet and is mildly thickened. Mild mitral regurgitation is present. The tricuspid valve appears structurally normal. The pulmonic valve was not well visualized. The aortic root size is normal. Normal inferior vena cava with normal inspiratory collapse consistent with estimated right atrial pressure of 5 mmHg. There is no pericardial effusion. CONCLUSIONS -------- 1. Sinus rhythm. 2. This was a technically good study. 3. The left ventricular size is normal. 4. There is moderate concentric left ventricular hypertrophy. 5. Overall left ventricular systolic function is normal with, an EF between 60 - 65 %. 6. The right ventricle is normal in size. 7. Normal LA size by volume 22+/-6 ml/m2. 8. The right atrium is normal in size. 9. Aortic valve is trileaflet and is mildly thickened. 10. Mild mitral regurgitation is present. 11. The tricuspid valve appears structurally normal. 12. The pulmonic valve was not well visualized. 13. The aortic root size is normal. 14. Normal inferior vena cava with normal inspiratory collapse consistent with estimated right atrial pressure of 5 mmHg. 15. There is no pericardial effusion. RECONCILIATION ANALYST: CONCHIS Hernandez
--- NOTE | 2017-12-11 13:10 | ECHOS ---
- Stress Test Note Stress Test Results/Findings: Exam Performed: stress echo exercise Exam Date: 12/07/17 Reason for Exam: chest pain Height: 6 ft Weight: 116.6 kg Protocol: kim Stage: 3 Duration of Exercise: 8:00 Resting Heart Rate: 87 Resting Blood Pressure: 107/65 Maximum Achieved Heart Rate: 155 Maximum Achieved Blood Pressure: 155/65 85% PMHR: 154 100% PMHR: 181 METS: 9.1 Technologist Comment: Stress Test Results/Findings: This 37-year-old gentleman is admitted to the hospital with complaints of chest pain and shortness of breath. Patient has history of hypertension and hypercholesteremia, and also smoking history. Be baseline EKG showed sinus rhythm with normal IN interval and QRS duration. Patient walked on the Kim protocol for 8 minutes achieving a maximal heart rate of 155 with a blood pressure 153/43. EKG taken during and after the exercise did not reveal any changes to suggest ischemic. Final impression #1. Negative stress test #2. Negative stress echo MTDD
--- NOTE | 2017-12-14 18:42 | P.CRDCN ---
History of Present Illness Consult date: 12/07/17 Consult reason: chest pain History of present illness: Mr. Ulrich is a pleasant 37-year-old male past medical history significant for hypertension, mitral valve prolapse and gastroesophageal reflux disease. He is also a current everyday smoker. He smokes approximately one pack of cigarettes per day. He denies personal history of coronary artery disease with states he has a very strong family history with his father having an WI at the age of 28 and his mother undergoing angioplasty 4. He states that he did undergo cardiac catheterization about 5 years ago at [facility] and that time he did not have any obstructive coronary artery disease requiring angioplasty but he states he did have mild diffuse disease that he can recall. His records aren't available to me at this time. We will request those. We have been asked to see him in consultation for complaints of chest pain. Over the previous week he's had symptoms of chest pain across the entire anterior chest wall radiating across from the [id number] down into the left arm. Associated with shortness of breath, nausea, vomiting, diaphoresis, palpitations and dizziness. He states this has been intermittent in nature worse with exertion and improves with rest. At the time of my exam he is chest pain-free. EKG on arrival reveals sinus mechanism with no acute ST or T-wave abnormalities. Chest x-ray is negative for an acute cardiopulmonary process. Laboratory data reviewed, hemoglobin 15.2, platelets 210, d-dimer less than 0.17 , potassium 4.4, magnesium 2.2, cardiac enzymes negative 3, LDL 122. He takes no daily cardiac medications. Review of Systems At the time my exam: CONSTITUTIONAL: Denies fever. Denies chills. EYES: Denies blurred vision. Denies vision changes. Denies eye pain. EARS, NOSE, MOUTH & THROAT: Denies headache. Denies sore throat. Denies ear pain. CARDIOVASCULAR: Denies chest pain. Denies shortness of breath. Denies orthopnea. Denies PND. Denies palpitations. RESPIRATORY: Denies cough. GASTROINTESTINAL: Denies abdominal pain. Denies diarrhea. Denies constipation. Denies nausea. Denies vomiting. MUSCULOSKELETAL: Denies myalgias. INTEGUMENTARY: Denies pruitis. Denies rash. NEUROLOGIC: Denies numbness. Denies tingling. Denies weakness. PSYCHIATRIC: Denies anxiety. Denies depression. ENDOCRINE: Denies fatigue. Denies weight change. Denies polydipsia. Denies polyurina. GENITOURINARY: Denies burning, hematuria or urgency with micturation. HEMATOLOGIC: Denies history of anemia. Denies bleeding. Past Medical History Past Medical History: GERD/Reflux, Hypertension, Mitral Valve Prolapse (MVP) History of Any Multi-Drug Resistant Organisms: None Reported Past Surgical History: Hernia Repair, Orthopedic Surgery Additional Past Surgical History / Comment(s): 2 shoulder surgeries Past Psychological History: No Psychological Hx Reported Smoking Status: Current every day smoker Past Alcohol Use History: Occasional Past Drug Use History: None Reported Medications and Allergies Home Medications Medication Instructions Recorded Confirmed Type No Known Home Medications [No 12/06/17 12/06/17 History Known Home Medications] Allergies Allergy/AdvReac Type Severity Reaction Status Date / Time No Known Allergies Allergy Verified 12/06/17 14:49 Physical Exam Vitals: Vital Signs Temp Pulse Pulse Pulse Resp BP BP 12/07/17 07:37 97.5 F L 74 16 111/76 12/07/17 04:00 16 12/07/17 03:42 98.4 F 73 16 123/77 12/07/17 00:00 16 12/06/17 23:31 98.5 F 81 16 122/69 12/06/17 20:00 16 12/06/17 19:17 98.0 F 73 16 121/72 12/06/17 18:16 12/06/17 17:54 98.1 F 78 17 120/83 12/06/17 17:21 97.2 F L 67 18 132/72 12/06/17 16:08 97.5 F L 75 16 113/72 12/06/17 15:20 97.3 F L 71 18 111/67 12/06/17 15:09 75 12/06/17 14:22 98.7 F 81 18 137/86 Pulse Ox 12/07/17 07:37 95 12/07/17 04:00 12/07/17 03:42 95 12/07/17 00:00 12/06/17 23:31 98 12/06/17 20:00 12/06/17 19:17 97 12/06/17 18:16 99 12/06/17 17:54 99 03/08/18 17:21 97 12/06/17 16:08 97 12/06/17 15:20 97 12/06/17 15:09 12/06/17 14:22 96 Intake and Output 12/06/17 12/07/17 12/07/17 22:59 06:59 14:59 Intake Total 371.399 205.269 Balance 371.399 205.269 Intake: Intake, IV Titration 131.399 205.269 Amount Heparin Sod,Pork in 0.45% 131.399 205.269 NaCl 25,000 unit In 0.45 % NaCl 1 500ml.bag @ 8.65 UNITS/KG/HR 20.01 mls/hr IV .Q24H SHANT Rx#: [id number] Oral 240 Other: Voiding Method Toilet Toilet # Voids 1 1 Weight 116.6 kg Blood pressure 111/76 heart rate 74 afebrile maintaining oxygen saturation on room air GENERAL: This is a 37-year-old male in no apparent distress at the time of my examination. HEENT: Head is atraumatic, normocephalic. Pupils are equal, round. Sclerae anicteric. Conjunctivae are clear. Mucous membranes of the mouth are moist. Neck is supple. There is no jugular venous distention. No carotid bruit is heard. LUNGS: Clear to auscultation no wheezes, rales or rhonchi. No chest wall tenderness is noted on palpation or with deep breathing. HEART: Regular rate and rhythm without murmurs, rubs or gallops. S1 and S2 heard. ABDOMEN: Soft, nontender. Bowel sounds are heard. No organomegaly noted. EXTREMITIES: No evidence of peripheral edema and no calf tenderness noted. VASCULAR: Radial and dorsalis pedis pulses palpated, no evidence of clubbing. NEUROLOGIC: Patient is awake, alert and oriented x3. Results 12/07/17 03:52 12/07/17 03:52 Cardiac Enzymes 12/06/17 12/06/17 12/06/17 Range/Units 14:00 14:00 21:13 AST 44 (17-59) U/L CK-MB (CK-2) 0.7 0.6 (0.0-2.4) ng/mL Troponin I <0.012 <0.012 (0.000-0.034) ng/mL 03/09/18 Range/Units 03:52 AST (17-59) U/L CK-MB (CK-2) 0.5 (0.0-2.4) ng/mL Troponin I <0.012 (0.000-0.034) ng/mL Coagulation 12/06/17 12/06/17 12/07/17 Range/Units 14:00 21:13 03:52 PT 9.7 (9.0-12.0) sec APTT 25.7 27.7 29.3 (22.0-30.0) sec Lipids 12/07/17 Range/Units 03:52 Triglycerides 214 H (<150) mg/dL Cholesterol 205 H (<200) mg/dL HDL Cholesterol 40 (40-60) mg/dL CBC 12/06/17 12/07/17 Range/Units 14:00 03:52 WBC 8.2 8.7 (3.8-10.6) k/uL RBC 5.05 4.84 (4.30-5.90) m/uL Hgb 15.7 15.2 (13.0-17.5) gm/dL Hct 46.4 44.9 (39.0-53.0) % Plt Count 215 210 (150-450) k/uL Comprehensive Metabolic Panel 12/06/17 12/07/17 Range/Units 14:00 03:52 Sodium 139 137 (137-145) mmol/L Potassium 4.6 4.4 (3.5-5.1) mmol/L Chloride 107 105 (98-107) mmol/L Carbon Dioxide 23 24 (22-30) mmol/L BUN 19 19 (9-20) mg/dL Creatinine 0.94 1.10 (0.66-1.25) mg/dL Glucose 102 H 96 (74-99) mg/dL Calcium 9.3 9.0 (8.4-10.2) mg/dL AST 44 (17-59) U/L ALT 71 (21-72) U/L Alkaline Phosphatase 70 (38-126) U/L Total Protein 6.9 (6.3-8.2) g/dL Albumin 4.0 (3.5-5.0) g/dL Current Medications Generic Name Dose Route Start Last Admin Trade Name Freq PRN Reason Stop Dose Admin Hydrocodone Bitart/Acetaminophen 1 each 12/06/17 16:52 12/07/17 03:16 [place] 5-325 PO 1 each Q6HR PRN Administration Pain Alprazolam 0.25 mg 12/06/17 16:52 12/07/17 03:18 Xanax PO 0.25 mg TID PRN Administration Anxiety Aspirin 325 mg 12/07/17 09:00 Aspirin PO DAILY [facility] Guaifenesin 200 mg 12/06/17 18:34 12/06/17 22:39 Robitussin PO 200 mg TID PRN Administration Cough Heparin Sodium/Sodium Chloride 500 mls @ 20.01 mls/hr 12/06/17 15:30 06:13 25,000 unit/ Sodium Chloride IV 14.65 units/kg/hr .Q24H SHANT 33.89 mls/hr Protocol Titration 8.65 UNITS/KG/HR Sodium Chloride 1,000 mls @ 20 mls/hr 12/06/17 15:30 12/06/17 15:59 Saline 0.9% IV 20 mls/hr .Q24H [facility] Administration Menthol 1 each 12/06/17 18:33 Nice Cough Drops MUCOUS MEM Q4H PRN Sore Throat Nitroglycerin 1 inch 12/06/17 18:00 12/07/17 04:21 Nitro-Bid Oint TOPICAL Not Given Q6HR [facility] Nitroglycerin 0.4 mg 12/06/17 15:26 Nitrostat SUBLINGUAL Q5M PRN Chest Pain Pantoprazole Sodium 40 mg 12/07/17 07:30 Protonix PO AC-BRKFST [facility] Temazepam 15 mg 12/06/17 21:00 Restoril PO HS PRN Insomnia Intake and Output 12/06/17 12/07/17 12/07/17 22:59 06:59 14:59 Intake Total 371.399 205.269 Balance 371.399 205.269 Intake: Intake, IV Titration 131.399 205.269 Amount Heparin Sod,Pork in 0.45% 131.399 205.269 NaCl 25,000 unit In 0.45 % NaCl 1 500ml.bag @ 8.65 UNITS/KG/HR 20.01 mls/hr IV .Q24H [facility] Rx#: [id number] Oral 240 Other: Voiding Method Toilet Toilet # Voids 1 1 Weight 116.6 kg 12/07/17 03:52 12/07/17 03:52 Assessment and Plan Assessment: ASSESSMENT 1. Chest pain, atypical. No EKG evidence of ischemia, cardiac enzymes negative 3. Acute coronary event has been ruled out. 2. Chronic tobacco abuse 3. Family history of coronary artery disease PLAN The records from previous cardiac catheterization for review. Obtain 2-D echocardiogram and Doppler study to assess cardiac structure and function. Perform stress echocardiogram to assess for stress induced cardiac ischemia. Further recommendations to follow based upon findings of diagnostic testing and review of old records. Thank you kindly for this consultation. Nurse Practitioner note has been reviewed, I agree with a documented findings and plan of care. Patient was seen and examined.
== END 2017-12-07 16:34 | disposition home or self-care (01) ==
LOC: EC 14:12 → 3OBS 15:26
PROVIDERS: ADMIT Hospitalist; ATTEND Hospitalist
DX: R07.89 Other chest pain (principal); R00.2 Palpitations; R61 Generalized hyperhidrosis; R06.02 Shortness of breath; R42 Dizziness and giddiness; I34.1 Nonrheumatic mitral (valve) prolapse; F17.210 Nicotine dependence, cigarettes, uncomplicated; K21.9 Gastro-esophageal reflux disease without esophagitis; M19.90 Unspecified osteoarthritis, unspecified site; I10 Essential (primary) hypertension; Z82.49 Family history of ischemic heart disease and other diseases of the circulatory system; R11.2 Nausea with vomiting, unspecified
CPT/HCPCS: 96376 ×2; 96365 ×2; 96366 ×4; 99291 ×2; 36415; 93005; 93017; 93306; 93350; 85379; 83880; 80061; 80053; 80048; 82550 ×2; 82553 ×2; 83735; 84484 ×2; 85025 ×2; 85610; 85730 ×2; 71046; G0378 ×2; S4990; J1644 ×2

== ENCOUNTER 2018-03-22 15:33 | Emergency (ER) | payer BC, OTHER ==
[2018-03-22 15:45] VITALS: TEMP 98.6
[2018-03-22] MEDS ORDERED: ASPIRIN 325 MG TAB PO STA (17:20)
[2018-03-22 17:42] LABS: Basophils # (A) 0.1 k/uL (0-0.2); Basophils % (A) 1 %; Eosinophils # (A) 0.2 k/uL (0-0.7); Eosinophils % (A) 3 %; HCT 47.6 % (39.0-53.0); HGB 16.5 gm/dL (13.0-17.5); Lymphocytes # (A) 2.7 k/uL (1.0-4.8); Lymphocytes % (A) 32 %; MCH 32.7 pg (25.0-35.0); MCHC 34.8 g/dL (31.0-37.0); MCV 94.1 fL (80.0-100.0); Mean Platelet Volume 8.1; Monocytes # (A) 0.4 k/uL (0-1.0); Monocytes % (A) 5 %; Neutrophils # (A) 4.8 k/uL (1.3-7.7); Neutrophils % (A) 57 %; Platelet Count 217 k/uL (150-450); RBC 5.06 m/uL (4.30-5.90); RDW 13.7 % (11.5-15.5); WBC 8.4 k/uL (3.8-10.6)
[2018-03-22 17:51] LABS: Anion Gap 11 mmol/L; Blood Urea Nitrogen 13 mg/dL (9-20); Calcium 9.2 mg/dL (8.4-10.2); Carbon Dioxide 23 mmol/L (22-30); Chloride 105 mmol/L (98-107); Glucose 86 mg/dL (74-99); Potassium 4.3 mmol/L (3.5-5.1); Sodium 139 mmol/L (137-145)
[2018-03-22 17:54] LABS: Partial Thromboplastin Time 25.4 sec (22.0-30.0); Prothrombin Time 9.7 sec (9.0-12.0)
--- NOTE | 2018-03-22 18:14 | XR ---
EXAMINATION TYPE: XR chest 2V DATE OF EXAM: 03/22/2018 COMPARISON: 12/06/2017 HISTORY: Leg swelling TECHNIQUE: Frontal and lateral views of the chest are obtained. FINDINGS: Heart and mediastinum are normal. Lungs are clear. Diaphragm is normal. Bony thorax appear s normal. IMPRESSION: Normal chest. There is improved inspiration compared to last exam.
--- NOTE | 2018-03-22 19:25 | ED ---
Extremity Problem HPI - General Chief complaint: Extremity Problem,Nontraumatic Stated complaint: Sent by PCP Swelling ankles Time Seen by Provider: 03/22/18 16:39 Source: patient Mode of arrival: ambulatory Limitations: no limitations - History of Present Illness Initial comments: 37-year-old male with past medical history as noted below presented for evaluation of lower extremity swelling. He states that is been ongoing for the last few days and started after he was laid off from his job. He is a mechanic welder and states that sometimes he sitting and standing however since being laid off his activity levels changed and is noting swelling in his feet. This is causing him discomfort however he states is no discoloration and that the swelling will go down at night. He denies any associated chest pain, shortness of breath, fevers, chills, nausea, vomiting, back pain, lightheadedness, dizziness. - Related Data Home Medications Medication Instructions Recorded Confirmed Atorvastatin [Lipitor] 40 mg PO DAILY 03/22/18 03/22/18 Previous Rx's Medication Instructions Recorded Aspirin 81 mg PO DAILY chew 12/07/17 Allergies Allergy/AdvReac Type Severity Reaction Status Date / Time No Known Allergies Allergy Verified 03/22/18 17:01 Review of Systems ROS Statement: Those systems with pertinent positive or pertinent negative responses have been documented in the HPI. ROS Other: All systems not noted in ROS Statement are negative. Constitutional: Denies: fever, chills Eyes: Denies: eye pain, vision change ENT: Denies: ear pain, throat pain Respiratory: Denies: cough, dyspnea Cardiovascular: Reports: edema. Denies: chest pain, palpitations Endocrine: Denies: fatigue, polydipsia Gastrointestinal: Denies: abdominal pain, nausea, vomiting Genitourinary: Denies: urgency, dysuria Musculoskeletal: Denies: back pain, arthralgia, myalgia Skin: Denies: rash, lesions Neurological: Denies: headache, weakness Psychiatric: Denies: anxiety, depression Hematological/Lymphatic: Denies: easy bleeding, easy bruising Past Medical History Past Medical History: GERD/Reflux, Hyperlipidemia, Hypertension, Mitral Valve Prolapse (MVP) History of Any Multi-Drug Resistant Organisms: None Reported Past Surgical History: Hernia Repair, Orthopedic Surgery Additional Past Surgical History / Comment(s): 2 shoulder surgeries Past Psychological History: No Psychological Hx Reported Smoking Status: Current every day smoker Past Alcohol Use History: Occasional Past Drug Use History: None Reported General Exam Limitations: no limitations General appearance: alert, in no apparent distress Head exam: Present: atraumatic, normocephalic, normal inspection Eye exam: Present: normal appearance, PERRL, EOMI. Absent: scleral icterus, conjunctival injection, periorbital swelling ENT exam: Present: normal exam, mucous membranes moist Neck exam: Present: normal inspection. Absent: tenderness, meningismus, lymphadenopathy Respiratory exam: Present: normal lung sounds bilaterally. Absent: respiratory distress, wheezes, rales, rhonchi, stridor Cardiovascular Exam: Present: regular rate, normal rhythm, normal heart sounds. Absent: systolic murmur, diastolic murmur, rubs, gallop, clicks GI/Abdominal exam: Present: soft, normal bowel sounds. Absent: distended, tenderness, guarding, rebound, rigid Extremities exam: Present: full ROM, normal capillary refill, pedal edema ( minimal). Absent: normal inspection, tenderness, joint swelling, calf tenderness Back exam: Present: normal inspection Neurological exam: Present: alert, oriented X3, CN II-XII intact Psychiatric exam: Present: normal affect, normal mood Skin exam: Present: warm, dry, intact, normal color. Absent: rash Course Vital Signs 03/22/18 03/22/18 15:42 19:36 Temperature 98.6 F Pulse Rate 82 61 Respiratory 20 18 Rate Blood Pressure 118/79 123/86 O2 Sat by Pulse 98 97 Oximetry Medical Decision Making - Medical Decision Making 37-year-old male presenting for evaluation pedal edema bilaterally. On physical examination he appears to be in no current distress vital signs are stable. There is 1+ pedal edema bilaterally however pulses sensation and motor function are intact. The pt has no risk factors for DVT and given that his bilateral is without need to be pursued. Labs revealed no significant abnormalities and chest x-ray showed no acute process. EKG showed above. Patient was reevaluated and had improvement in symptoms. He was informed of all results and given that he is low risk with a low heart score he will be discharged with instructions to follow-up with his primary care physician but return to this facility if symptoms should worsen or persist. The patient acknowledged an understanding of all information provided and agreed with this plan of care. - Lab Data Result diagrams: 03/22/18 17:28 03/22/18 17:28 Lab Results 03/22/18 03/22/18 03/22/18 Range/Units 17: 17: 17: WBC 8.4 (3.8-10.6) k/uL RBC 5.06 (4.30-5.90) m/uL Hgb 16.5 (13.0-17.5) gm/dL Hct 47.6 (39.0-53.0) % MCV 94.1 (80.0-100.0) fL MCH 32.7 (25.0-35.0) pg MCHC 34.8 (31.0-37.0) g/dL RDW 13.7 (11.5-15.5) % Plt Count 217 (150-450) k/uL Neutrophils % 57 % Lymphocytes % 32 % Monocytes % 5 % Eosinophils % 3 % Basophils % 1 % Neutrophils # 4.8 (1.3-7.7) k/uL Lymphocytes # 2.7 (1.0-4.8) k/uL Monocytes # 0.4 (0-1.0) k/uL Eosinophils # 0.2 (0-0.7) k/uL Basophils # 0.1 (0-0.2) k/uL PT (9.0-12.0) sec INR (<1.2) APTT (22.0-30.0) sec Sodium 139 (137-145) mmol/L Potassium 4.3 (3.5-5.1) mmol/L Chloride 105 (98-107) mmol/L Carbon Dioxide 23 (22-30) mmol/L Anion Gap 11 mmol/L BUN 13 (9-20) mg/dL Creatinine 0.85 (0.66-1.25) mg/dL Est GFR (CKD-EPI)AfAm >90 (>60 ml/min/1.73 sqM) Est GFR (CKD-EPI)NonAf >90 (>60 ml/min/1.73 sqM) Glucose 86 (74-99) mg/dL Calcium 9.2 (8.4-10.2) mg/dL Troponin I (0.000-0.034) ng/mL NT-Pro-B Natriuret Pep 61 pg/mL 03/22/18 03/22/18 Range/Units 17:28 17:28 WBC (3.8-10.6) k/uL RBC (4.30-5.90) m/uL Hgb (13.0-17.5) gm/dL Hct (39.0-53.0) % MCV (80.0-100.0) fL MCH (25.0-35.0) pg MCHC (31.0-37.0) g/dL RDW (11.5-15.5) % Plt Count (150-450) k/uL Neutrophils % % Lymphocytes % % Monocytes % % Eosinophils % % Basophils % % Neutrophils # (1.3-7.7) k/uL Lymphocytes # (1.0-4.8) k/uL Monocytes # (0-1.0) k/uL Eosinophils # (0-0.7) k/uL Basophils # (0-0.2) k/uL PT 9.7 (9.0-12.0) sec INR 1.0 (<1.2) APTT 25.4 (22.0-30.0) sec Sodium (137-145) mmol/L Potassium (3.5-5.1) mmol/L Chloride (98-107) mmol/L Carbon Dioxide (22-30) mmol/L Anion Gap mmol/L BUN (9-20) mg/dL Creatinine (0.66-1.25) mg/dL Est GFR (CKD-EPI)AfAm (>60 ml/min/1.73 sqM) Est GFR (CKD-EPI)NonAf (>60 ml/min/1.73 sqM) Glucose (74-99) mg/dL Calcium (8.4-10.2) mg/dL Troponin I <0.012 (0.000-0.034) ng/mL NT-Pro-B Natriuret Pep pg/mL 03/22/18 19:23 Number sinus rhythm with ventricular rate of 74. Disposition Clinical Impression: Pedal edema Disposition: HOME SELF-CARE Condition: Stable Instructions: Leg Edema (ED) Is patient prescribed a controlled substance at d/c from ED?: No Referrals: Renita Reyes MD [Primary Care Provider] - 1-2 days Time of Disposition: 19:24
[2018-03-22 19:37] VITALS: BP 123/86; PULSE 61; RESP 18
== END 2018-03-22 19:37 | disposition home or self-care (01) ==
LOC: EC 15:33
DX: R60.0 Localized edema (principal); E78.5 Hyperlipidemia, unspecified; F17.200 Nicotine dependence, unspecified, uncomplicated; Z79.899 Other long term (current) drug therapy
CPT/HCPCS: 36415; 71046; 80048; 83880; 84484; 85025; 85610; 85730; 93005; 99284

== ENCOUNTER → 2018-04-16 | Outpatient (CLI) | payer BC ==
--- NOTE | 2018-04-16 13:02 | XR ---
EXAMINATION TYPE: XR chest 2V DATE OF EXAM: 04/16/2018 COMPARISON: 03/22/2018 HISTORY: 37-year-old male COPD, cough TECHNIQUE: Frontal and lateral views FINDINGS: Heart normal size. Aorta and pulmonary vasculature within normal limits. Mild central peribronchial c uffing. No consolidation or pleural effusion. IMPRESSION: Mild central peribronchial cuffing could represent bronchitis or asthma. No acute process otherwise s een.
== END | disposition home or self-care (01) ==
LOC: RADXRMAIN 11:15
PROVIDERS: ATTEND Internal Medicine Sleep Medicine
DX: J98.09 Other diseases of bronchus, not elsewhere classified (principal); J44.9 Chronic obstructive pulmonary disease, unspecified
CPT/HCPCS: 71046

== ENCOUNTER 2020-02-16 22:09 | Emergency (ER) | payer OTHER ==
[2020-02-16 22:17] VITALS: RESP 18; TEMP 98.1
--- NOTE | 2020-02-16 22:45 | XR ---
EXAMINATION TYPE: XR chest 2V DATE OF EXAM: 02/16/2020 COMPARISON: 04/16/2018 HISTORY: Cough TECHNIQUE: 2 views FINDINGS: Heart and mediastinum are normal. Lungs are clear. Diaphragm is normal. Bony thorax is inta ct. IMPRESSION: Normal chest. No change.
--- NOTE | 2020-02-16 23:10 | ED ---
General Adult HPI - General Chief complaint: Shortness of Breath Stated complaint: SOB following chemical exposure Time Seen by Provider: 02/16/20 22:25 Source: patient Mode of arrival: wheelchair Limitations: no limitations - History of Present Illness Initial comments: Patient is a 39-year-old male with history of COPD presenting to the emergency room with a chief complaint of chemical inhalation. Patient states she was cleaning the bathroom tub with a pulse in cleaning solution with he accidentally spilled it and attempted to open a window so the small does not go in the house. Patient reports he was approximately confined to the room for about 3 minutes before he was able to exit. Patient reports shortness of breath and a burning- like sensation in his lungs. Patient denies any chest pain at this time. Patient quit smoking 6 days ago. Does report feeling slightly wheezy at this moment. Denies any lightheadedness or dizziness - Related Data Home Medications Medication Instructions Recorded Confirmed Atorvastatin [Lipitor] 40 mg PO DAILY 03/22/18 03/22/18 Previous Rx's Medication Instructions Recorded Aspirin 81 mg PO DAILY chew 12/07/17 Allergies Allergy/AdvReac Type Severity Reaction Status Date / Time No Known Allergies Allergy Verified 02/16/20 22:17 Review of Systems ROS Statement: Those systems with pertinent positive or pertinent negative responses have been documented in the HPI. ROS Other: All systems not noted in ROS Statement are negative. Past Medical History Past Medical History: GERD/Reflux, Hyperlipidemia, Hypertension, Mitral Valve Prolapse (MVP) History of Any Multi-Drug Resistant Organisms: None Reported Past Surgical History: Hernia Repair, Orthopedic Surgery Additional Past Surgical History / Comment(s): 2 shoulder surgeries Past Psychological History: No Psychological Hx Reported Smoking Status: Former smoker Past Alcohol Use History: Occasional Past Drug Use History: None Reported General Exam Limitations: no limitations General appearance: alert, in no apparent distress, obese Head exam: Present: atraumatic, normocephalic, normal inspection Eye exam: Present: normal appearance, PERRL, EOMI Pupils: Present: normal accommodation ENT exam: Present: normal exam Neck exam: Present: normal inspection, full ROM Respiratory exam: Present: wheezes (Mild wheezing bilaterally). Absent: respiratory distress, rales Cardiovascular Exam: Present: regular rate, normal rhythm, normal heart sounds GI/Abdominal exam: Present: soft. Absent: distended, tenderness, guarding Extremities exam: Present: normal inspection, full ROM, normal capillary refill, other (+2 ulnar and radial pulses bilaterally.) Back exam: Present: normal inspection, full ROM Neurological exam: Present: alert, oriented X3 Psychiatric exam: Present: normal affect, normal mood Skin exam: Present: warm, dry, intact, normal color Course Vital Signs 02/16/20 02/17/20 02/17/20 22:14 00:29 00:32 Temperature 98.1 F Pulse Rate 90 89 Respiratory 18 Rate Blood Pressure 127/85 O2 Sat by Pulse 95 97 Oximetry 02/17/20 00:38 Temperature Pulse Rate 88 Respiratory Rate Blood Pressure O2 Sat by Pulse Oximetry EKG Findings - EKG Comments: EKG Findings:: Sinus rhythm with no ST or T changes. Ventricular rate 87, MI 130, QRS 88, QTC 418 Medical Decision Making - Medical Decision Making Patient is a 39-year-old male with history of COPD presenting to the emergency department with a chief complaint of shortness of breath. Patient inhaled a cleaning solution for approximately 3 minutes. On initial evaluation patient appears to have mild bilateral wheezing. Patient did recently stop smoking. Initial oxygen saturation was 95% on room air. Patient was started on high flow nasal cannula. Reevaluation patient has an O2 of 95%, however he continues to have a mild wheeze. Patient was given a COPD exacerbation treatment which included a DuoNeb treatment along with Solu-Medrol. On reevaluation patient reports feeling much better. States the shortness of breath has resolved. Return parameters were thoroughly discussed with patient is understanding and agreeable. Case discussed with physician. - Lab Data Result diagrams: 02/16/20 23:06 02/16/20 23:06 Lab Results 02/16/20 02/16/20 02/16/20 Range/Units 23:06 23:06 23:06 WBC 15.7 H (3.8-10.6) k/uL RBC 4.72 (4.30-5.90) m/uL Hgb 15.0 (13.0-17.5) gm/dL Hct 45.1 (39.0-53.0) % MCV 95.6 (80.0-100.0) fL MCH 31.8 (25.0-35.0) pg MCHC 33.2 (31.0-37.0) g/dL RDW 13.0 (11.5-15.5) % Plt Count 230 (150-450) k/uL Neutrophils % 79 % Lymphocytes % 13 % Monocytes % 5 % Eosinophils % 2 % Basophils % 1 % Neutrophils # 12.3 H (1.3-7.7) k/uL Lymphocytes # 2.1 (1.0-4.8) k/uL Monocytes # 0.8 (0-1.0) k/uL Eosinophils # 0.2 (0-0.7) k/uL Basophils # 0.1 (0-0.2) k/uL VBG pH (7.31-7.41) VBG pCO2 (37-51) mmHg VBG HCO3 (24-28) mmol/L Sodium 137 (137-145) mmol/L Potassium 4.2 (3.5-5.1) mmol/L Chloride 105 (98-107) mmol/L Carbon Dioxide 23 (22-30) mmol/L Anion Gap 9 mmol/L BUN 14 (9-20) mg/dL Creatinine 0.97 (0.66-1.25) mg/dL Est GFR (CKD-EPI)AfAm >90 (>60 ml/min/1.73 sqM) Est GFR (CKD-EPI)NonAf >90 (>60 ml/min/1.73 sqM) Glucose 102 H (74-99) mg/dL Plasma Lactic Acid Wild 1.5 (0.7-2.0) mmol/L Calcium 9.5 (8.4-10.2) mg/dL Total Bilirubin 0.3 (0.2-1.3) mg/dL AST 57 (17-59) U/L ALT 77 H (4-49) U/L Alkaline Phosphatase 79 (38-126) U/L Total Protein 7.3 (6.3-8.2) g/dL Albumin 4.2 (3.5-5.0) g/dL / Range/Units 23:06 WBC (3.8-10.6) k/uL RBC (4.30-5.90) m/uL Hgb (13.0-17.5) gm/dL Hct (39.0-53.0) % MCV (80.0-100.0) fL MCH (25.0-35.0) pg MCHC (31.0-37.0) g/dL RDW (11.5-15.5) % Plt Count (150-450) k/uL Neutrophils % % Lymphocytes % % Monocytes % % Eosinophils % % Basophils % % Neutrophils # (1.3-7.7) k/uL Lymphocytes # (1.0-4.8) k/uL Monocytes # (0-1.0) k/uL Eosinophils # (0-0.7) k/uL Basophils # (0-0.2) k/uL VBG pH 7.37 (7.31-7.41) VBG pCO2 41 (37-51) mmHg VBG HCO3 23 L (24-28) mmol/L Sodium (137-145) mmol/L Potassium (3.5-5.1) mmol/L Chloride (98-107) mmol/L Carbon Dioxide (22-30) mmol/L Anion Gap mmol/L BUN (9-20) mg/dL Creatinine (0.66-1.25) mg/dL Est GFR (CKD-EPI)AfAm (>60 ml/min/1.73 sqM) Est GFR (CKD-EPI)NonAf (>60 ml/min/1.73 sqM) Glucose (74-99) mg/dL Plasma Lactic Acid Wild (0.7-2.0) mmol/L Calcium (8.4-10.2) mg/dL Total Bilirubin (0.2-1.3) mg/dL AST (17-59) U/L ALT (4-49) U/L Alkaline Phosphatase (38-126) U/L Total Protein (6.3-8.2) g/dL Albumin (3.5-5.0) g/dL Disposition Clinical Impression: Exposure to chemical inhalation, Shortness of breath Disposition: HOME SELF-CARE Condition: Stable Instructions (If sedation given, give patient instructions): Smoke Inhalation (ED) Additional Instructions: Follow up with the primary care. Return to emergency department if symptoms worsen. Is patient prescribed a controlled substance at d/c from ED?: No Referrals: Venkat Montes MD [Primary Care Provider] - 1-2 days Time of Disposition: 01:21
[2020-02-16 23:25] LABS: Basophils # (A) 0.1 k/uL (0-0.2); Basophils % (A) 1 %; Eosinophils # (A) 0.2 k/uL (0-0.7); Eosinophils % (A) 2 %; HCT 45.1 % (39.0-53.0); Lymphocytes # (A) 2.1 k/uL (1.0-4.8); Lymphocytes % (A) 13 %; MCH 31.8 pg (25.0-35.0); MCHC 33.2 g/dL (31.0-37.0); MCV 95.6 fL (80.0-100.0); Mean Platelet Volume 9.1; Monocytes # (A) 0.8 k/uL (0-1.0); Monocytes % (A) 5 %; Neutrophils # (A) 12.3 k/uL (1.3-7.7); Neutrophils % (A) 79 %; Platelet Count 230 k/uL (150-450); RBC 4.72 m/uL (4.30-5.90); WBC 15.7 k/uL (3.8-10.6)
[2020-02-16 23:33] LABS: VBG PH 7.37 (7.31-7.41)
[2020-02-16 23:38] LABS: ALT 77 U/L (4-49); AST 57 U/L (17-59); African American GFR (CKD) >90 (>60 ml/min/1.73 sqM); Albumin 4.2 g/dL (3.5-5.0); Alkaline Phosphatase 79 U/L (38-126); Anion Gap 9 mmol/L; Blood Urea Nitrogen 14 mg/dL (9-20); Calcium 9.5 mg/dL (8.4-10.2); Carbon Dioxide 23 mmol/L (22-30); Chloride 105 mmol/L (98-107); Glucose 102 mg/dL (74-99); Non-African American GFR(CKD) >90 (>60 ml/min/1.73 sqM); Potassium 4.2 mmol/L (3.5-5.1); Sodium 137 mmol/L (137-145); Total Bilirubin 0.3 mg/dL (0.2-1.3); Total Protein 7.3 g/dL (6.3-8.2)
[2020-02-17] MEDS ORDERED: ALBUTEROL NEBULIZED 2.5 MG/3 ML INHALATION STA (00:06)
[2020-02-17] MEDS ORDERED: methylPREDNISolone SOD SUCCI 125 MG/2 ML VIAL IV STA (00:07)
[2020-02-17 01:53] VITALS: BP 112/68; PULSE 74
== END 2020-02-17 01:53 | disposition home or self-care (01) ==
LOC: EC 22:09
DX: R06.02 Shortness of breath (principal); Z77.098 Contact with and (suspected) exposure to other hazardous, chiefly nonmedicinal, chemicals; R06.2 Wheezing; E78.5 Hyperlipidemia, unspecified; Z79.899 Other long term (current) drug therapy; Z87.891 Personal history of nicotine dependence
CPT/HCPCS: 36415; 94640; 93005; 80053; 82803; 83605; 85025; 71046; 99285; 96374; J2930

== ENCOUNTER 2022-09-25 23:43 | Emergency (ER) | payer OTHER ==
[2022-09-25 23:49] VITALS: RESP 18
--- NOTE | 2022-09-26 00:13 | XR ---
EXAMINATION TYPE: XR chest 2V DATE OF EXAM: 09/25/2022 COMPARISON: 02/16/2020 HISTORY: Cough TECHNIQUE: 2 views FINDINGS: Heart and mediastinum are normal. Lungs are clear. Diaphragm is normal. Bony thorax is inta ct. IMPRESSION: Normal chest. Normal heart. No change.
[2022-09-26] MEDS ORDERED: ALBUTEROL HFA INHALER INHALATION STA (00:14)
[2022-09-26] MEDS ORDERED: methylPREDNISolone SOD SUCCI 125 MG/2 ML VIAL IM STA (00:14)
--- NOTE | 2022-09-26 00:17 | ED ---
URI HPI - General Chief Complaint: Upper Respiratory Infection Stated Complaint: SOB, Cough Time Seen by Provider: 09/26/22 00:04 Source: patient, RN notes reviewed Mode of arrival: wheelchair Limitations: no limitations - History of Present Illness Initial Comments: This is a pleasant 41-year-old male with a history of COPD, acid reflux, hypertension, hyperlipidemia, and mitral valve prolapse. She presents to the restaurant today complaining of 3 days of nasal congestion, postnasal drip, cough, sore throat. No headache, no definitive fever although the patient states he does not "FEEL well" or difficulty with speech, no neck pain, no chest pain or shortness of breath, no abdominal pain, no nausea or vomiting, no changes in urination or bowel movements, no numbness or tingling, no extremity pain, no skin rashes or lesions. Patient is a former cigarette smoker Past medical, surgical, social, and family history reviewed. MD Complaint: cough, sore throat, rhinorrhea, nasal congestion - Related Data Home Medications Medication Instructions Recorded Confirmed Atorvastatin [Lipitor] 40 mg PO DAILY 03/22/18 03/22/18 Previous Rx's Medication Instructions Recorded Aspirin 81 mg PO DAILY chew 12/07/17 Albuterol Inhaler [Ventolin Hfa 2 puff INHALATION Q4HR PRN #1 each 09/26/22 Inhaler] Azithromycin [Zithromax Tri-Edis (3 500 mg PO DAILY 3 Days #3 tab 09/26/22 tabs)] predniSONE 50 mg PO DAILY #5 tab 09/26/22 Allergies Allergy/AdvReac Type Severity Reaction Status Date / Time codeine Allergy Rash/Hives Verified 09/25/22 23:50 Review of Systems ROS Statement: Those systems with pertinent positive or pertinent negative responses have been documented in the HPI. ROS Other: All systems not noted in ROS Statement are negative. Past Medical History Past Medical History: COPD, GERD/Reflux, Hyperlipidemia, Hypertension, Mitral Valve Prolapse (MVP) History of Any Multi-Drug Resistant Organisms: None Reported Past Surgical History: Hernia Repair, Orthopedic Surgery Additional Past Surgical History / Comment(s): 2 shoulder surgeries Past Psychological History: No Psychological Hx Reported Smoking Status: Former smoker, Vaper Past Alcohol Use History: Occasional Past Drug Use History: None Reported General Exam - General Exam Comments Initial Comments: Patient appears to be mildly open not toxic. Patient mildly hypertensive. Remainder of the vital signs are stable. Moist mucous membranes. No mottling. Normal capillary refill. Pulse oximetry on room air is 98%. Dry cough noted. Limitations: no limitations General appearance: alert, in no apparent distress Head exam: Present: atraumatic, normocephalic, normal inspection Eye exam: Present: normal appearance, PERRL, EOMI. Absent: scleral icterus, conjunctival injection, periorbital swelling ENT exam: Present: normal exam, normal oropharynx, mucous membranes moist, TM's normal bilaterally, normal external ear exam. Absent: mucous membranes dry Neck exam: Present: normal inspection. Absent: tenderness, meningismus, lymphadenopathy Respiratory exam: Present: normal lung sounds bilaterally. Absent: respiratory distress, wheezes, rales, rhonchi, stridor, chest wall tenderness, accessory muscle use, decreased breath sounds, prolonged expiratory Cardiovascular Exam: Present: regular rate, normal rhythm, normal heart sounds. Absent: systolic murmur, diastolic murmur, rubs, gallop, clicks GI/Abdominal exam: Present: soft, normal bowel sounds. Absent: distended, tenderness, guarding, rebound, rigid Extremities exam: Present: normal inspection, full ROM, normal capillary refill. Absent: tenderness, pedal edema, joint swelling, calf tenderness Back exam: Present: normal inspection Neurological exam: Present: alert, oriented X3, CN II-XII intact, normal gait. Absent: abnormal gait, motor sensory deficit Psychiatric exam: Present: normal affect, normal mood Skin exam: Present: warm, dry, intact, normal color. Absent: rash Course Vital Signs 09/25/22 09/26/22 23:46 00:20 Temperature 98.1 F Pulse Rate 77 Respiratory 18 18 Rate Blood Pressure 159/90 O2 Sat by Pulse 97 Oximetry - Reevaluation(s) Reevaluation #1: 09/26/22 01:06 Medical record is reviewed Symptoms are improved here in the emergency department Patient is informed of results and questions answered Patient in no distress Medical Decision Making - Medical Decision Making Was pt. sent in by a medical professional or institution? @ -no Did you speak to anyone other than the patient for history? @ -no Did you review nursing and triage notes? @ -Agree Were old charts reviewed? @ -His records Differential Diagnosis? @ -Acute bronchitis, COPD exacerbation, influenza, RSV, COVID-19, bacterial pneumonia, streptococcal pharyngitis, congestive heart failure, GERD, this is not an all-inclusive list X-rays interpreted by me (1pt min.)? @ -Independent interpretation by me reveals no evidence of acute pathology. No pneumonia. No effusion. No pneumothorax. No osseous lesion. What testing was considered but not performed? (CT, X-rays, U/S, labs)? Why? @ [I did consider laboratory investigations to include CBC, CMP and cardiac testing. However this disease process appears to be consistent with viral bronchitis and viral upper respiratory infection, does not appear to be con sistent with cardiac disease or pulmonary disease otherwise. Patient had no adventitious lung sounds] What meds were considered but not given? Why? @ -[none] Did you discuss the management of the patient with other professionals? @ -ED attending physician Did you reconcile home meds? @ -[none] Was smoking cessation discussed for >3mins.? @ -Former smoker What co-morbidities impacted this encounter? (DM, HTN, Smoking, COPD, CAD, Cancer, CVA, Hep., AIDS, mental health diagnosis, sleep apnea, morbid obesity)? @ -[Hypertension, COPD, COPD is currently untreated as the patient has not had inhalers.] Was patient admitted / discharged? @ -[Patient's viral testing was negative. Chest x-ray was clear. Patient did have slight wheezing in the right upper lobe with forced expiration. Given the nature of the patient's cough and history of going to treat him for mild COPD exacerbation. We'll cover with Zithromax, prednisone 5 days, and albuterol inhaler. Follow-up with primary care physician without fail. Treated plan discussed with the patient in detail. Patient concurs] Diagnosis/symptom? @ -[Cough with forced expiratory wheezing, mild COPD exacerbation] Acute, or Chronic, or Acute on Chronic? @ -[Acute on chronic] Uncomplicated (without systemic symptoms) or Complicated (systemic symptoms)? @ -[Uncomplicated Side effects of treatment? @ -[none] Exacerbation, Progression, or Severe Exacerbation] @ -[Exacerbation] Poses a threat to life or bodily function? @ -[no] Note that the patient had been out of his inhaler. Patient was told to return to the ER for any signs or symptoms worsen. Told to return immediately if any other problems arise. All questions answered. Treatment plan discussed. Patient in agreement Every effort has been made to ensure accuracy of this dictation. However, due to the limitations of electronic medical records and dictation devices, errors in charting still occur. Supervising physician Dr. Desir - Lab Data Lab Results 09/25/22 Range/Units 23:51 Influenza Type A (PCR) Not Detected (Not Detectd) Influenza Type B (PCR) Not Detected (Not Detectd) RSV (PCR) Not Detected (Not Detectd) SARS-CoV-2 (PCR) Not Detected (Not Detectd) - Radiology Data Radiology results: report reviewed, image reviewed Two-view chest x-ray interpreted by me shows no evidence of acute pathology. Disposition Clinical Impression: COPD with acute exacerbation Disposition: HOME SELF-CARE Condition: Good Instructions (If sedation given, give patient instructions): COPD (Chronic Obstructive Pulmonary Disease) (ED) Additional Instructions: Take the antibiotics as directed. Albuterol inhaler 2 puffs every 4 hours as needed for cough or shortness of breath. Prednisone 50 mg daily for 5 days. Follow-up with your regular physician as directed. Return to the ER immediately if any symptoms worsen, new symptoms arise, or any other problems develop. Is patient prescribed a controlled substance at d/c from ED?: No Referrals: Venkat Montes MD [Primary Care Provider] - 1-2 days Time of Disposition: 01:07
[2022-09-26] MEDS ORDERED: AZITHROMYCIN 500 MG TAB PO STA (01:05)
[2022-09-26 01:29] VITALS: BP 154/78; PULSE 72; TEMP 98
== END 2022-09-26 01:28 | disposition home or self-care (01) ==
LOC: EC 23:43
DX: J44.1 Chronic obstructive pulmonary disease with (acute) exacerbation (principal); K21.9 Gastro-esophageal reflux disease without esophagitis; E78.5 Hyperlipidemia, unspecified; I10 Essential (primary) hypertension; Z87.891 Personal history of nicotine dependence; Z88.5 Allergy status to narcotic agent; Z20.822 Contact with and (suspected) exposure to COVID-19
CPT/HCPCS: 71046; 87636; 94640; 96372; 99285

== ENCOUNTER 2023-03-01 23:00 | Emergency (ER) | payer BC ==
[2023-03-01 23:13] VITALS: TEMP 98
[2023-03-01 23:22] LABS: Glucose,Whole Blood 116 mg/dL (70-110)
--- NOTE | 2023-03-01 23:31 | ED ---
General Adult HPI - General Chief complaint: Weakness Stated complaint: blurry vision Time Seen by Provider: 03/01/23 23:22 Source: patient Mode of arrival: ambulatory Limitations: no limitations - History of Present Illness Initial comments: This patient is a 42-year-old man who is here to have evaluation for constellation of symptoms that are been going on for couple of days. He has been having congestion, cough and little bit of sore throat. The patient did not go to work today because he was not feeling well. He states that he thought he had picked up a virus. Patient was going to go to bed tonight and then when he stood up off the couch he began to feel lightheaded, his vision was spotty and he was having some perioral tingling. This prompted his to bring him to emergency department. The patient did not note chest pain or palpitations. No diaphoresis or nausea/vomiting. From the review of systems, the patient does complain of chronic daily diarrhea having over 5 bowel movements per day most days -: days(s) Severity scale (1-10): 0 Improves with: none Worsens with: none Associated Symptoms: cough - Related Data Home Medications Medication Instructions Recorded Confirmed Atorvastatin [Lipitor] 40 mg PO DAILY 03/22/18 03/22/18 Previous Rx's Medication Instructions Recorded Aspirin 81 mg PO DAILY chew 12/07/17 Albuterol Inhaler [Ventolin Hfa 2 puff INHALATION Q4HR PRN #1 each 09/26/22 Inhaler] Azithromycin [Zithromax Tri-Edis (3 500 mg PO DAILY 3 Days #3 tab 09/26/22 tabs)] predniSONE 50 mg PO DAILY #5 tab 09/26/22 Allergies Allergy/AdvReac Type Severity Reaction Status Date / Time codeine Allergy Rash/Hives Verified 03/01/23 23:12 Review of Systems ROS Statement: Those systems with pertinent positive or pertinent negative responses have been documented in the HPI. ROS Other: All systems not noted in ROS Statement are negative. Constitutional: Reports: as per HPI, weakness. Denies: fever, chills Eyes: Reports: as per HPI, vision change ENT: Reports: throat pain, congestion Respiratory: Reports: cough. Denies: dyspnea, wheezes, hemoptysis Cardiovascular: Denies: chest pain, palpitations, syncope Gastrointestinal: Reports: diarrhea. Denies: abdominal pain, nausea, vomiting, constipation Genitourinary: Denies: dysuria, hematuria Musculoskeletal: Denies: back pain Skin: Denies: rash Neurological: Reports: paresthesias. Denies: headache, weakness, numbness Past Medical History Past Medical History: COPD, GERD/Reflux, Hyperlipidemia, Hypertension, Mitral Valve Prolapse (MVP) History of Any Multi-Drug Resistant Organisms: None Reported Past Surgical History: Hernia Repair, Orthopedic Surgery Additional Past Surgical History / Comment(s): 2 shoulder surgeries Past Psychological History: No Psychological Hx Reported Smoking Status: Former smoker, Vaper Past Alcohol Use History: Occasional Past Drug Use History: None Reported General Exam Limitations: no limitations General appearance: alert, in no apparent distress Head exam: Present: atraumatic, normocephalic Eye exam: Present: normal appearance, PERRL, EOMI. Absent: scleral icterus, conjunctival injection ENT exam: Present: mucous membranes dry Neck exam: Present: normal inspection Respiratory exam: Present: normal lung sounds bilaterally. Absent: respiratory distress, wheezes, rales, rhonchi, stridor Cardiovascular Exam: Present: regular rate, normal rhythm, normal heart sounds. Absent: systolic murmur, diastolic murmur, rubs, gallop GI/Abdominal exam: Present: soft. Absent: distended, tenderness, guarding, rebound, rigid, mass Extremities exam: Present: normal inspection, normal capillary refill. Absent: pedal edema, calf tenderness Back exam: Present: normal inspection. Absent: CVA tenderness (R), CVA tenderness (L) Neurological exam: Present: alert Skin exam: Present: warm, dry, intact, normal color. Absent: rash Course Vital Signs 03/01/23 03/02/23 03/02/23 23:07 01:00 02:31 Temperature 98.0 F Pulse Rate 90 73 74 Respiratory 20 24 18 Rate Blood Pressure 138/84 105/72 107/73 O2 Sat by Pulse 98 95 95 Oximetry EKG Findings - EKG Results: EKG: interpreted by [place] ANDREWS, sinus rhythm (Rate 85 bpm), normal axis, normal QRS, normal ST/T, no acute changes Medical Decision Making - Medical Decision Making Patient had a chest x-ray which I interpreted as showing no acute infiltrate, pneumothorax, or ingested heart failure Patient is 42-year-old man presenting with symptoms consistent with viral sy ndrome and element of dehydration. The patient was feeling better following IV fluids and wanted to go home. We discussed appropriate further care and follow- up as well as return parameters. Was pt. sent in by a medical professional or institution ([facility], TELEGRAPH MESSENGER, urgent care, hospital, or correction...) When possible be specific @ -[No] Did you speak to anyone other than the patient for history (EMS, parent, family, police, friend...)? What history was obtained from this source @ -[No] Did you review nursing and triage notes (agree or disagree)? Why? @ -[I reviewed and agree with nursing and triage notes] Were old charts reviewed (outside hosp., previous admission, EMS record, old EKG, old radiological studies, urgent care reports/EKG's, correction records)? Report findings @ -[No old charts were reviewed] Differential Diagnosis (chest pain, altered mental status, abdominal pain women, abdominal pain men, vaginal bleeding, weakness, fever, dyspnea, syncope, headache, dizziness, GI bleed, back pain, seizure, CVA, palpatations, mental health, musculoskeletal)? @ -[Differential Dizziness: Benign paroxysmal positional Vertigo, Menieres disease, otitis media, acoustic neuroma, vertebrobasilar insufficiency, cerebellar stroke, encephalitis, hypovolemic, arrhythmia, coronary artery syndrome, anemia, this is not meant to be an all-inclusive list EKG interpreted by me (3pts min.). @ -[As above] X-rays interpreted by me (1pt min.). @ -[As above CT interpreted by me (1pt min.). @ -[None done] U/S interpreted by me (1pt. min.). @ -[None done] What testing was considered but not performed or refused? (CT, X-rays, U/S, labs)? Why? @ -[None] What meds were considered but not given or refused? Why? @ -[None] Did you discuss the management of the patient with other professionals (professionals i.e. [facility], TELEGRAPH MESSENGER, lab, RT, psych nurse, licensed social worker, control panel tester, teacher, natural resource officer, home health care case manager)? Give summary @ -[No] Was smoking cessation discussed for >3mins.? @ -[No] Was critical care preformed (if so, how long)? @ -[No] Were there social determinants of health that impacted care today? How? (Homelessness, low income, unemployed, alcoholism, drug addiction, transportation, low edu. Level, literacy, decrease access to med. care, long term, rehab)? @ -[No] Was there de-escalation of care discussed even if they declined (Discuss DNR or withdrawal of care, Hospice)? DNR status @ -[No] What co-morbidities impacted this encounter? (DM, HTN, Smoking, COPD, CAD, Cancer, CVA, ARF, Chemo, Hep., AIDS, mental health diagnosis, sleep apnea, morbid obesity)? @ -[None] Was patient admitted / discharged? Hospital course, mention meds given and route, prescriptions, significant lab abnormalities, going to OR and other pertinent info. @ -[Discharged Undiagnosed new problem with uncertain prognosis? @ -[No] Drug Therapy requiring intensive monitoring for toxicity (Heparin, Nitro, Insulin, Cardizem)? @ -[No] Were any procedures done? @ -[No] Diagnosis/symptom? @ -Acute orthostasis Acute dehydration Probable viral syndrome Acute, or Chronic, or Acute on Chronic? @ -[Acute Uncomplicated (without systemic symptoms) or Complicated (systemic symptoms)? @ -[Uncomplicated Side effects of treatment? @ -[No] Exacerbation, Progression, or Severe Exacerbation? @ -[No] Poses a threat to life or bodily function? How? (Chest pain, USA, ME, pneumonia, PE, COPD, DKA, ARF, appy, cholecystitis, CVA, Diverticulitis, Homicidal, Suicidal, threat to staff... and all critical care pts) @ -[No] - Lab Data Result diagrams: 03/01/23 23:27 03/01/23 23:27 Lab Results 03/01/23 03/01/23 03/01/23 Range/Units 23:21 23:27 23:27 WBC 7.4 (3.8-10.6) k/uL RBC 5.11 (4.30-5.90) m/uL Hgb 16.1 (13.0-17.5) gm/dL Hct 48.3 (39.0-53.0) % MCV 94.5 (80.0-100.0) fL MCH 31.6 (25.0-35.0) pg MCHC 33.4 (31.0-37.0) g/dL RDW 12.6 (11.5-15.5) % Plt Count 183 (150-450) k/uL MPV 9.5 Neutrophils % 53 % Lymphocytes % 32 % Monocytes % 8 % Eosinophils % 4 % Basophils % 1 % Neutrophils # 3.9 (1.3-7.7) k/uL Lymphocytes # 2.3 (1.0-4.8) k/uL Monocytes # 0.6 (0-1.0) k/uL Eosinophils # 0.3 (0-0.7) k/uL Basophils # 0.1 (0-0.2) k/uL PT 10.3 (9.0-12.0) sec INR 1.0 (<1.2) APTT 23.6 (22.0-30.0) sec Sodium (137-145) mmol/L Potassium (3.5-5.1) mmol/L Chloride (98-107) mmol/L Carbon Dioxide (22-30) mmol/L Anion Gap mmol/L BUN (9-20) mg/dL Creatinine (0.66-1.25) mg/dL Est GFR (CKD-EPI)AfAm (>60 ml/min/1.73 sqM) Est GFR (CKD-EPI)NonAf (>60 ml/min/1.73 sqM) Glucose (74-99) mg/dL POC Glucose (mg/dL) 116 H (70-110) mg/dL POC Glu [employer] Tile Installer ID Archie Chacko Plasma Lactic Acid Wild (0.7-2.0) mmol/L Calcium (8.4-10.2) mg/dL Magnesium (1.6-2.3) mg/dL Total Bilirubin (0.2-1.3) mg/dL AST (17-59) U/L ALT (4-49) U/L Alkaline Phosphatase (38-126) U/L Troponin I (0.000-0.034) ng/mL Total Protein (6.3-8.2) g/dL Albumin (3.5-5.0) g/dL Influenza Type A (PCR) (Not Detectd) Influenza Type B (PCR) (Not Detectd) RSV (PCR) (Not Detectd) SARS-CoV-2 (PCR) (Not Detectd) 03/01/23 03/01/23 03/01/23 Range/Units 23:27 23:27 23:27 WBC (3.8-10.6) k/uL RBC (4.30-5.90) m/uL Hgb (13.0-17.5) gm/dL Hct (39.0-53.0) % MCV (80.0-100.0) fL MCH (25.0-35.0) pg MCHC (31.0-37.0) g/dL RDW (11.5-15.5) % Plt Count (150-450) k/uL MPV Neutrophils % % Lymphocytes % % Monocytes % % Eosinophils % % Basophils % % Neutrophils # (1.3-7.7) k/uL Lymphocytes # (1.0-4.8) k/uL Monocytes # (0-1.0) k/uL Eosinophils # (0-0.7) k/uL Basophils # (0-0.2) k/uL PT (9.0-12.0) sec INR (<1.2) APTT (22.0-30.0) sec Sodium 138 (137-145) mmol/L Potassium 4.0 (3.5-5.1) mmol/L Chloride 106 (98-107) mmol/L Carbon Dioxide 21 L (22-30) mmol/L Anion Gap 11 mmol/L BUN 14 (9-20) mg/dL Creatinine 0.99 (0.66-1.25) mg/dL Est GFR (CKD-EPI)AfAm >90 (>60 ml/min/1.73 sqM) Est GFR (CKD-EPI)NonAf >90 (>60 ml/min/1.73 sqM) Glucose 121 H (74-99) mg/dL POC Glucose (mg/dL) (70-110) mg/dL POC Glu Ceramic Tile Installer ID Plasma Lactic Acid Wild 1.6 (0.7-2.0) mmol/L Calcium 9.1 (8.4-10.2) mg/dL Magnesium 1.9 (1.6-2.3) mg/dL Total Bilirubin 0.6 (0.2-1.3) mg/dL AST 47 (17-59) U/L ALT 62 H (4-49) U/L Alkaline Phosphatase 110 (38-126) U/L Troponin I <0.012 (0.000-0.034) ng/mL Total Protein 7.2 (6.3-8.2) g/dL Albumin 4.0 (3.5-5.0) g/dL Influenza Type A (PCR) (Not Detectd) Influenza Type B (PCR) (Not Detectd) RSV (PCR) (Not Detectd) SARS-CoV-2 (PCR) (Not Detectd) 03/02/23 Range/Units 00:06 WBC (3.8-10.6) k/uL RBC (4.30-5.90) m/uL Hgb (13.0-17.5) gm/dL Hct (39.0-53.0) % MCV (80.0-100.0) fL MCH (25.0-35.0) pg MCHC (31.0-37.0) g/dL RDW (11.5-15.5) % Plt Count (150-450) k/uL MPV Neutrophils % % Lymphocytes % % Monocytes % % Eosinophils % % Basophils % % Neutrophils # (1.3-7.7) k/uL Lymphocytes # (1.0-4.8) k/uL Monocytes # (0-1.0) k/uL Eosinophils # (0-0.7) k/uL Basophils # (0-0.2) k/uL PT (9.0-12.0) sec INR (<1.2) APTT (22.0-30.0) sec Sodium (137-145) mmol/L Potassium (3.5-5.1) mmol/L Chloride (98-107) mmol/L Carbon Dioxide (22-30) mmol/L Anion Gap mmol/L BUN (9-20) mg/dL Creatinine (0.66-1.25) mg/dL Est GFR (CKD-EPI)AfAm (>60 ml/min/1.73 sqM) Est GFR (CKD-EPI)NonAf (>60 ml/min/1.73 sqM) Glucose (74-99) mg/dL POC Glucose (mg/dL) (70-110) mg/dL POC Glu Cer[employer] Tile Installer ID Plasma Lactic Acid Wild (0.7-2.0) mmol/L Calcium (8.4-10.2) mg/dL Magnesium (1.6-2.3) mg/dL Total Bilirubin (0.2-1.3) mg/dL AST (17-59) U/L ALT (4-49) U/L Alkaline Phosphatase (38-126) U/L Troponin I (0.000-0.034) ng/mL Total Protein (6.3-8.2) g/dL Albumin (3.5-5.0) g/dL Influenza Type A (PCR) Not Detected (Not Detectd) Influenza Type B (PCR) Not Detected (Not Detectd) RSV (PCR) Not Detected (Not Detectd) SARS-CoV-2 (PCR) Not Detected (Not Detectd) Disposition Clinical Impression: Orthostatic dizziness, Dehydration Disposition: HOME SELF-CARE Condition: Good Instructions (If sedation given, give patient instructions): Dehydration (ED) Is patient prescribed a controlled substance at d/c from ED?: No Referrals: Venkat Montes MD [Primary Care Provider] - 1-2 days
[2023-03-01] MEDS ORDERED: SODIUM CHLORIDE 0.9% 500 ML 500 ML IV STA (23:42)
--- NOTE | 2023-03-02 | XR ---
EXAMINATION TYPE: XR chest 2V DATE OF EXAM: 03/01/2023 11:56 PM COMPARISON: Chest radiographs from 09/26/2022 TECHNIQUE: XR chest 2V Frontal and lateral views of the chest. CLINICAL INDICATION:Male, 42 years old with history of Weakness; FINDINGS: Lungs/Pleura: There is no evidence of pleural effusion, focal consolidation, or pneumothorax. Pulmonary vascularity: Unremarkable. Heart/mediastinum: Cardiomediastinal silhouette is unremarkable. Musculoskeletal: No acute osseous pathology. IMPRESSION: No acute cardiopulmonary disease/process.
[2023-03-02 00:24] LABS: ALT 62 U/L (4-49); AST 47 U/L (17-59); African American GFR (CKD) >90 (>60 ml/min/1.73 sqM); Alkaline Phosphatase 110 U/L (38-126); Anion Gap 11 mmol/L; Basophils # (A) 0.1 k/uL (0-0.2); Basophils % (A) 1 %; Blood Urea Nitrogen 14 mg/dL (9-20); Calcium 9.1 mg/dL (8.4-10.2); Carbon Dioxide 21 mmol/L (22-30); Chloride 106 mmol/L (98-107); Eosinophils # (A) 0.3 k/uL (0-0.7); Eosinophils % (A) 4 %; Glucose 121 mg/dL (74-99); HCT 48.3 % (39.0-53.0); HGB 16.1 gm/dL (13.0-17.5); Lymphocytes # (A) 2.3 k/uL (1.0-4.8); Lymphocytes % (A) 32 %; MCH 31.6 pg (25.0-35.0); MCHC 33.4 g/dL (31.0-37.0); MCV 94.5 fL (80.0-100.0); Magnesium 1.9 mg/dL (1.6-2.3); Mean Platelet Volume 9.5; Monocytes # (A) 0.6 k/uL (0-1.0); Monocytes % (A) 8 %; Neutrophils # (A) 3.9 k/uL (1.3-7.7); Neutrophils % (A) 53 %; Non-African American GFR(CKD) >90 (>60 ml/min/1.73 sqM); Platelet Count 183 k/uL (150-450); RBC 5.11 m/uL (4.30-5.90); RDW 12.6 % (11.5-15.5); Sodium 138 mmol/L (137-145); Total Bilirubin 0.6 mg/dL (0.2-1.3); Total Protein 7.2 g/dL (6.3-8.2); WBC 7.4 k/uL (3.8-10.6)
[2023-03-02 00:29] LABS: Partial Thromboplastin Time 23.6 sec (22.0-30.0); Prothrombin Time 10.3 sec (9.0-12.0)
[2023-03-02] MEDS ORDERED: SODIUM CHLORIDE 0.9% 1,000 ML IV ONE (01:38)
[2023-03-02 02:33] VITALS: BP 107/73; PULSE 74; RESP 18
== END 2023-03-02 02:33 | disposition home or self-care (01) ==
LOC: EC 23:00
DX: R42 Dizziness and giddiness (principal); E86.0 Dehydration; I10 Essential (primary) hypertension; E78.5 Hyperlipidemia, unspecified; J44.9 Chronic obstructive pulmonary disease, unspecified; Z20.822 Contact with and (suspected) exposure to COVID-19; Z87.891 Personal history of nicotine dependence
CPT/HCPCS: 36415; 71046; 80053; 83605; 83735; 84484; 85025; 85610; 85730; 87636; 93005; 99285

== ENCOUNTER → 2024-01-18 | Outpatient (CLI) | payer OTHER ==
--- NOTE | 2024-01-18 13:31 | XR ---
EXAMINATION TYPE: XR knee complete RT DATE OF EXAM: 01/18/2024 COMPARISON: NONE HISTORY: 11/03/2021 TECHNIQUE: 3 views FINDINGS: Extensor mechanism is intact. Note knee joint effusion. There may be mild anterior soft tissue swelli ng. No acute fracture, subluxation, dislocation seen. IMPRESSION: Mild anterior soft tissue swelling. No acute osseous abnormality seen.
== END | disposition home or self-care (01) ==
LOC: RADXRMAIN 12:56
PROVIDERS: ATTEND Emergency Medicine
DX: S80.01XA Contusion of right knee, initial encounter (principal); M79.89 Other specified soft tissue disorders

== ENCOUNTER → 2024-10-23 | Outpatient (CLI) | payer OTHER ==
--- NOTE | 2024-10-23 10:33 | XR ---
EXAMINATION TYPE: XR humerus LT, XR forearm LT, XR elbow complete LT DATE OF EXAM: 10/23/2024 10:20 AM COMPARISON: Left shoulder x-ray February 09, 2014. CLINICAL INDICATION: Male, 44 years old with history of S40.022A S50.02XA S50.12XA, pain after injury . TECHNIQUE: Two views of the left humerus and forearm are obtained. 3 views left shoulder. FINDINGS: There is no acute fracture or dislocation seen in the left humerus. No acute displaced fra cture in the left elbow. No abnormal fat pad signs. No acute displaced fracture of the left radius or ulna. Overlying soft tissue is unremarkable. IMPRESSION: No acute fracture or dislocation is evident in the left humerus, elbow, or forearm. [facility], , 10/23/2024 10:31 AM
== END | disposition home or self-care (01) ==
LOC: RADXRMAIN 09:39
PROVIDERS: ATTEND Emergency Medicine
DX: S40.022A Contusion of left upper arm, initial encounter (principal); S50.02XA Contusion of left elbow, initial encounter; S50.12XA Contusion of left forearm, initial encounter; X58.XXXA Exposure to other specified factors, initial encounter